=== PATIENT | male | born 1950 | race Caucasian/White ===

== ENCOUNTER 2019-01-18 23:23 | Inpatient (IN) | payer MEDICARE, OTHER ==
[~2019-01-18] VITALS: Ht 177.8 cm; Wt 93.5 kg
--- OUTSIDE RECORDS SUMMARY | 2019-01-18 23:32 | XMS REPORT ---
Author Author Migration, Doctor Organization [facility] Address Unknown Phone Unavailable Care Team Providers Care Pnp Name Role Phone Migration, Doctor Unavailable Unavailable PROBLEMS Type Condition ICD9-CM Code NUN63-OZ Code Onset Dates Condition Status SNOMED Code Problem Uncontrolled type 2 diabetes mellitus without complication, without long- term current use of insulin E11.65 Active 726528298 Problem Controlled type 2 diabetes mellitus without complication, without long- term current use of insulin E11.9 Active 479946466 Problem Type 2 diabetes mellitus with hyperglycemia E11.65 Active 854823245290142 Problem Hypertension, benign I10 Active 03159774 ALLERGIES No Information ENCOUNTERS Encounter Location Date Diagnosis [place] [id number] [place] [address] Dec, [place] [id number] [place] [address] Sep, Type 2 diabetes mellitus with hyperglycemia E11.65 [place] [id number] [place] [address] Sep, Type 2 diabetes mellitus with hyperglycemia E11.65 [place] [id number] [place] [address] Aug, Controlled type 2 diabetes mellitus without complication, without long-term current use of insulin E11.9 [place] [id number] [place] [address] Jan, Controlled type 2 diabetes mellitus without complication, without long-term current use of insulin E11.9 [place] [id number] [place] [address] Dec, Uncontrolled type 2 diabetes mellitus without complication, without long-term current use of insulin E11.65 [place] [id number] [place] [address] Nov, [facility] [address], [place] [address] Nov, Uncontrolled type 2 diabetes mellitus without complication, without long-term current use of insulin E11.65 and Hypertension, benign I10 [facility] [id number] [address] Sep, Type 2 diabetes mellitus with hyperglycemia E11.65 and Hypertension, benign I10 [facility] [id number] [place] [address] Aug, Type 2 diabetes mellitus with hyperglycemia E11.65 [place] [id number] [place] [address] Jan, [place] [id number] [place] [address] October, Blood pressure check Z01.30 [facility] WALK IN [facility] [id number] [place] [address] October, [facility] [id number] [place] [address] Jun, Type 2 diabetes mellitus with hyperglycemia E11.65 [facility] [id number] [place] [address] Jun, Shingles outbreak B02.9 ; Benign essential hypertension I10 and Diabetes E11.9 [place] [id number] [place] [address] Mar, [place] [id number] [place] [address] Jan, [place] [id number] [place] [address] Jan, [facility] [id number] [place] [address] Jan, [place] [id number] [place] [address] Dec, Diabetes type 2, uncontrolled 250.02 [facility] [address] [facility] [id number] [place] [address] Dec, [facility] [address] [facility] [id number] [place] [address] Nov, [facility] [address] [facility] [id number] [place] [address] 14 Sep, 2014 [facility] [address] [facility] [id number], [place] [address] Sep, [facility] [address] [facility] [id number] [place] [address] Aug, [facility] [id number], [place] [address] Aug, [facility] [address], [place] [address] Jul, [facility] [id number], [place] [address] Jul, [facility] [address], [place] [address] Jul, [facility] [address], [place] [address] Jul, [facility] [address], [place] [address] Jul, [facility] [address] [facility] [id number], [place] [address] Jul, [facility] [id number], [place] [address] Jun, [facility] [address] [facility] [id number], [place] [address] Jun, [facility] [id number], [place] [address] Jul, [facility] [address] [facility] [id number], [place] [address] Jun, [facility] [address], [place] [address] May, [facility] [address], [place] [address] May, [facility] [id number], [place] [address] May, [facility] [address] [facility] [id number], [place] [address] May, IMMUNIZATIONS No Known Immunizations SOCIAL HISTORY Never Assessed REASON FOR VISIT PLAN OF CARE VITAL SIGNS MEDICATIONS Unknown Medications RESULTS No Results PROCEDURES No Known procedures INSTRUCTIONS MEDICATIONS ADMINISTERED No Known Medications MEDICAL (GENERAL) HISTORY Type Description Date Medical History hypertension Medical History diabetes
--- OUTSIDE RECORDS SUMMARY | 2019-01-18 23:32 | XMS REPORT ---
Author Author Migration, Doctor Organization [facility] Address Unknown Phone Unavailable Care Team Providers Care Manager Behavior Name Role Phone Migration, Doctor Unavailable Unavailable PROBLEMS Type Condition ICD9-CM Code HYY14-NO Code Onset Dates Condition Status SNOMED Code Problem Uncontrolled type 2 diabetes mellitus without complication, without long- term current use of insulin E11.65 Active 430191436 Problem Controlled type 2 diabetes mellitus without complication, without long- term current use of insulin E11.9 Active 028978822 Problem Type 2 diabetes mellitus with hyperglycemia E11.65 Active [id number] Problem Hypertension, benign I10 Active 73443934 ALLERGIES No Information ENCOUNTERS Encounter Location Date Diagnosis [place] [id number] [place] [address] Dec, [place] [id number] [place] [address] Sep, Type 2 diabetes mellitus with hyperglycemia E11.65 [place] [id number] [place] [address] Sep, Type 2 diabetes mellitus with hyperglycemia E11.65 [place] [id number] [place] [address] Aug, Controlled type 2 diabetes mellitus without complication, without long-term current use of insulin E11.9 [place] [id number] [place] [address] Jan, Controlled type 2 diabetes mellitus without complication, without long-term current use of insulin E11.9 [place] [id number] [place] [address] Dec, Uncontrolled type 2 diabetes mellitus without complication, without long-term current use of insulin E11.65 [place] [id number] [place] [address] Nov, [facility] [address] [address] Nov, Uncontrolled type 2 diabetes mellitus without complication, without long-term current use of insulin E11.65 and Hypertension, benign I10 [facility] [id number] [address] Sep, Type 2 diabetes mellitus with hyperglycemia E11.65 and Hypertension, benign I10 [facility] [address] [id number] [place] [address] Aug, Type 2 diabetes mellitus with hyperglycemia E11.65 [place] [id number] [place] [address] Jan, [place] [id number] [place] [address] October, Blood pressure check Z01.30 [facility] WALK IN [facility] [id number] [place] [address] October, [facility] [id number] [place] [address] Jun, Type 2 diabetes mellitus with hyperglycemia E11.65 [facility] [id number] [place] [address] Jun, Shingles outbreak B02.9 ; Benign essential hypertension I10 and Diabetes E11.9 [place] [id number] [place] [address] Mar, [place] [id number] [place] [address] Jan, [place] [id number] [place] [address] Jan, [facility] [id number] [place] [address] Jan, [place] [id number] [place] [address] Dec, Diabetes type 2, uncontrolled 250.02 [facility] [address] [facility] [id number] [place] [address] Dec, [facility] [address] [facility] [id number] [place] [address] Nov, [facility] [address] [facility] [id number] [place] [address] 14 Sep, 2014 [facility] [address] [facility] [id number] [address] Sep, [facility] [address] [facility] [id number] [place] [address] Aug, [facility] [id number] [address] Aug, [facility] [address] [address] Jul, [facility] [id number] [address] Jul, [facility] [address] [address] Jul, [facility] [address] [address] Jul, [facility] [address] [address] Jul, [facility] [address] [facility] [id number] [place] [address] Jul, [facility] [id number] [address] Jun, [facility] [address] [facility] [id number] [place] [address] Jun, [facility] [id number] [address] Jul, [facility] [address] [facility] [id number] [place] [address] Jun, [facility] [address] [address] May, [facility] [address] [address] May, [facility] [id number] [address] May, [facility] [address] [facility] [id number] [place] [address] May, IMMUNIZATIONS No Known Immunizations SOCIAL HISTORY Never Assessed REASON FOR VISIT PLAN OF CARE VITAL SIGNS MEDICATIONS Unknown Medications RESULTS No Results PROCEDURES No Known procedures INSTRUCTIONS MEDICATIONS ADMINISTERED No Known Medications MEDICAL (GENERAL) HISTORY Type Description Date Medical History hypertension Medical History diabetes
--- OUTSIDE RECORDS SUMMARY | 2019-01-18 23:32 | XMS REPORT ---
Author Author Migration, Doctor Organization [facility] Address Unknown Phone Unavailable Care Team Providers Care Suction Plate Roller Hand Name Role Phone Migration, Doctor Unavailable Unavailable PROBLEMS Type Condition ICD9-CM Code XKO13-WM Code Onset Dates Condition Status SNOMED Code Problem Uncontrolled type 2 diabetes mellitus without complication, without long- term current use of insulin E11.65 Active 539210475 Problem Controlled type 2 diabetes mellitus without complication, without long- term current use of insulin E11.9 Active 349990711 Problem Type 2 diabetes mellitus with hyperglycemia E11.65 Active 357647968858401 Problem Hypertension, benign I10 Active 55420886 ALLERGIES No Information ENCOUNTERS Encounter Location Date Diagnosis [place] [id number] [place] [address] Sep, Type 2 diabetes mellitus with hyperglycemia E11.65 [place] [id number] [place] [address] Sep, Type 2 diabetes mellitus with hyperglycemia E11.65 [place] [id number] [place] [address] Aug, Controlled type 2 diabetes mellitus without complication, without long-term current use of insulin E11.9 [place] [address], [place] [address] Jan, Controlled type 2 diabetes mellitus without complication, without long-term current use of insulin E11.9 [place] [address], [place] [address] Dec, Uncontrolled type 2 diabetes mellitus without complication, without long-term current use of insulin E11.65 [facility] [address], [place] [address] Nov, [facility] [id number] [place] [address] Nov, Uncontrolled type 2 diabetes mellitus without complication, without long-term current use of insulin E11.65 and Hypertension, benign I10 [facility] [id number] [place] [address] Sep, Type 2 diabetes mellitus with hyperglycemia E11.65 and Hypertension, benign I10 [facility] [id number] [place] [address] Aug, Type 2 diabetes mellitus with hyperglycemia E11.65 [facility] [id number] [place] [address] Jan, [place] [id number] [place] [address] October, Blood pressure check Z01.30 [facility] [id number] [place] [address] October, [facility] [id number] [place] [address] Jun, Type 2 diabetes mellitus with hyperglycemia E11.65 [facility] WALK IN [facility] [id number] [place] [address] Jun, Shingles outbreak B02.9 ; Benign essential hypertension I10 and Diabetes E11.9 [place] [id number] [place] [address] Mar, [place] [id number] [place] [address] Jan, [place] [id number] [place] [address] Jan, [place] [id number] [place] [address] Jan, [facility] [id number] [place] [address] Dec, Diabetes type 2, uncontrolled 250.02 [facility] [id number] [place] [address] Dec, [facility] [place] [facility] [address] [facility] [id number] [place] [address] Nov, [facility] [place] [facility] [address] [facility] [id number] [place] [address] 14 Sep, 2014 [facility] [place] [facility] [address] [facility] [id number] [place] [address] Sep, [facility] [place] [facility] [address] [facility] [id number], [place] [address] Aug, [facility] [place] [facility] [address] [facility] [id number] [place] [address] Aug, [facility] [place] [facility] [address] [facility] [id number], [place] [address] Jul, 2014 [facility] [place] [facility] [address] [facility] [id number] [place] [address] Jul, [facility] [place] [facility] [address] [facility] [id number], [place] [address] Jul, 2014 [facility] [place] [facility] [address] [facility] [id number], [place] [address] Jul, [facility] [place] [facility] [address] [facility] [id number], [place] [address] Jul, [facility] [place] [facility] [address] [facility] [id number], [place] [address] Jul, 2014 [facility] [place] [facility] [address] [facility] [id number], [place] [address] Jun, [facility] [place] [facility] [address] [facility] [id number], [place] [address] Jun, [facility] [place] [facility] [address] [facility] [id number], [place] [address] Jul, 2012 [facility] [place] [facility] [address] [facility] [id number], [place] [address] Jun, [facility] [place] [facility] [address] [facility] [id number], [place] [address] May, [facility] [address] [facility] [id number], [place] [address] May, [facility] [address] [facility] [id number], [place] [address] May, [facility] [address] [facility] [id number], [place] [address] May, IMMUNIZATIONS No Known Immunizations SOCIAL HISTORY Never Assessed REASON FOR VISIT EMR-[facility] [place] PLAN OF CARE VITAL SIGNS MEDICATIONS Unknown Medications RESULTS No Results PROCEDURES No Known procedures INSTRUCTIONS MEDICATIONS ADMINISTERED No Known Medications MEDICAL (GENERAL) HISTORY Type Description Date Medical History hypertension Medical History diabetes
--- OUTSIDE RECORDS SUMMARY | 2019-01-18 23:32 | XMS REPORT ---
Author Author CASA Trotter Organization [facility] Address [address] [place] [address] Care Team Providers Care Breeder Service Technician Name Role Phone CASA Trotter Unavailable PROBLEMS Type Condition ICD9-CM Code DUR25-YB Code Onset Dates Condition Status SNOMED Code Problem Uncontrolled type 2 diabetes mellitus without complication, without long- term current use of insulin E11.65 Active 502171230 Problem Controlled type 2 diabetes mellitus without complication, without long- term current use of insulin E11.9 Active 249946357 Problem Type 2 diabetes mellitus with hyperglycemia E11.65 Active 170239337623001 Problem Hypertension, benign I10 Active 56164150 ALLERGIES No Information ENCOUNTERS Encounter Location Date Diagnosis [place] [address] [id number] [place] [address] Dec, [place] [address] [address] [id number] [place] [address] Sep, Type 2 diabetes mellitus with hyperglycemia E11.65 [place] [address] [id number] [place] [address] Sep, Type 2 diabetes mellitus with hyperglycemia E11.65 [place] [id number] [place] [address] Aug, Controlled type 2 diabetes mellitus without complication, without long-term current use of insulin E11.9 [place] [id number] [place] [address] Jan, Controlled type 2 diabetes mellitus without complication, without long-term current use of insulin E11.9 [place] [id number] [place] [address] Dec, Uncontrolled type 2 diabetes mellitus without complication, without long-term current use of insulin E11.65 [facility] [address], [place] [address] Nov, [facility] [id number] [place] [address] Nov, Uncontrolled type 2 diabetes mellitus without complication, without long-term current use of insulin E11.65 and Hypertension, benign I10 [facility] [id number] [place] [address] Sep, Type 2 diabetes mellitus with hyperglycemia E11.65 and Hypertension, benign I10 [facility] [id number] [place] [address] Aug, Type 2 diabetes mellitus with hyperglycemia E11.65 [place] [id number] [place] [address] Jan, [place] [id number] [place] [address] October, Blood pressure check Z01.30 [facility] [id number] [place] [address] October, [facility] [id number] [place] [address] Jun, Type 2 diabetes mellitus with hyperglycemia E11.65 [facility] [address], [place] [address] Jun, Shingles outbreak B02.9 ; Benign essential hypertension I10 and Diabetes E11.9 [facility] [address], [place] [address] Mar, [facility] [id number] [place] [address] Jan, [facility] [id number] [place] [address] Jan, [facility] [id number] [place] [address] Jan, [facility] [address] [facility] [id number], [place] [address] Dec, Diabetes type 2, uncontrolled 250.02 [facility] [address] [facility] [id number], [place] [address] Dec, [facility] [id number] [place] [address] Nov, [facility] [address] [facility] [id number], [place] [address] Sep, [facility] [address] [facility] [id number] [place] [address], [place] [address] Sep, [facility] [address], [place] [address] Aug, [facility] [id number] [place] [address] Aug, [facility] [address], [place] [address] Jul, [facility] [address], [place] [address] Jul, [facility] [address], [place] [address] Jul, [facility] [address], [place] [address] Jul, [facility] [address], [place] [address] Jul, [facility] [address], [place] [address] Jul, [facility] [address], [place] [address] Jun, [facility] [address], [place] [address] Jun, [facility] [address] [facility] [id number], [place] [address] Jul, [facility] [address] [place] [id number], [place] [address] Jun, [facility] [address], [place] [address] May, [facility] [address], [place] [address] May, [facility] [id number], [place] [address] May, [facility] [id number], [place] [address] May, IMMUNIZATIONS No Known Immunizations SOCIAL HISTORY Never Assessed REASON FOR VISIT PLAN OF CARE VITAL SIGNS Height 66 in 2014-07-28 Weight 193 lbs 2014-07-28 Temperature 98.6 degrees Fahrenheit 2014-07-28 Heart Rate 88 bpm 2014-07-28 Respiratory Rate 22 2014-07-28 Blood pressure systolic 190 mmHg 2014-07-28 Blood pressure diastolic 100 mmHg 2014-07-28 MEDICATIONS Unknown Medications RESULTS No Results PROCEDURES Procedure Date Ordered Result Body Site GLYCATED HEMOGLOBIN TEST Jul 28, 2014 INSTRUCTIONS MEDICATIONS ADMINISTERED No Known Medications MEDICAL (GENERAL) HISTORY Type Description Date Medical History hypertension Medical History diabetes
--- OUTSIDE RECORDS SUMMARY | 2019-01-18 23:33 | XMS REPORT ---
Author Author MARIA ELENA VINES Organization [employer] Address Unknown Phone Unavailable Care Team Providers Care Breast Splitter Name Role Phone MARIA ELENA VINES CP Unavailable Allergies No Known Allergies Problems No Known Problems Medications Medication Code System Code Instructions Start Date End Date Status Dosage Lisinopril-Hydrochlorothiazide [facility] [id number] 20-25 MG TAKE ONE TABLET BY MOUTH ONCE DAILY IN THE MORNING Results No Known Results Summary Purpose [employer] Submission
--- OUTSIDE RECORDS SUMMARY | 2019-01-18 23:33 | XMS REPORT ---
Author Author OUSMANE POTTS [facility] Address [address] [place] [address] Care Team Providers Care Engineering Model Maker Name Role Phone OUSMANE POTTS Unavailable PROBLEMS Type Condition ICD9-CM Code FHM07-BF Code Onset Dates Condition Status SNOMED Code Problem Uncontrolled type 2 diabetes mellitus without complication, without long- term current use of insulin E11.65 Active 186700155 Problem Hypertension, benign I10 Active 86694282 Problem Type 2 diabetes mellitus with hyperglycemia E11.65 Active [id number] ALLERGIES No Known Allergies ENCOUNTERS Encounter Location Date Diagnosis [place] [id number] [place] [address] Jan, [facility] [id number] [place] [address] Dec, Uncontrolled type 2 diabetes mellitus without complication, without long-term current use of insulin E11.65 [facility] [id number] [place] [address] Nov, [facility] [id number] [place] [address] Nov, Uncontrolled type 2 diabetes mellitus without complication, without long-term current use of insulin E11.65 and Hypertension, benign I10 [facility] [id number] [place] [address] Sep, Type 2 diabetes mellitus with hyperglycemia E11.65 and Hypertension, benign I10 [facility] [address] [id number] [place] [address] Aug, Type 2 diabetes mellitus with hyperglycemia E11.65 [facility] [id number] [place] [address] Jan, [facility] [id number] [place] [address] October, Blood pressure check Z01.30 [facility] [id number] [place] [address] October, [facility] [id number] [place] [address] Jun, Type 2 diabetes mellitus with hyperglycemia E11.65 [facility] [id number] [place] [address] Jun, Shingles outbreak B02.9 ; Benign essential hypertension I10 and Diabetes E11.9 [facility] [address] [address] Mar, [facility] [id number] [place] [address] Jan, [facility] [id number] [place] [address] Jan, [facility] [id number] [place] [address] Jan, [facility] [id number] [place] [address] Dec, Diabetes type 2, uncontrolled 250.02 [facility] [id number] [place] [address] Dec, [facility] [id number] [place] [address] Nov, [facility] [id number] [place] [address] Sep, [facility] [id number] [place] [address] Sep, [facility] [address] [place] [address] Aug, [facility] [id number], [place] [address] Aug, [facility] [address], [place] [address] Jul, 2014 [facility] [address], [place] [address] Jul, 2014 [facility] [address], [place] [address] Jul, 2014 [facility] [address], [place] [address] Jul, 2014 [facility] [address] [place] [address] Jul, [facility] [address], [place] [address] Jul, [facility] [address] [place] [address] Jun, [facility] [address], [place] [address] Jun, [facility] [address], [place] [address] Jul, [facility] [address], [place] [address] Jun, [facility] [address], [place] [address] May, [facility] [address], [place] [address] May, [facility] [address], [place] [address] May, [facility] [address], [place] [address] May, IMMUNIZATIONS No Known Immunizations SOCIAL HISTORY Never Assessed REASON FOR VISIT Diabetes II, PT saw you last month for DM-Moriah SOLO PLAN OF CARE VITAL SIGNS Height 66 in 2017-10-14 Weight 195.0 lbs 2017-10-14 Temperature 97.9 degrees Fahrenheit 2017-10-14 Heart Rate 68 bpm 2017-10-14 Respiratory Rate 18 2017-10-14 BMI 31.47 kg/m2 2017-10-14 Blood pressure systolic 164 mmHg 2017-10-14 Blood pressure diastolic 90 mmHg 2017-10-14 MEDICATIONS Medication Instructions Dosage Frequency Start Date End Date Duration Status GlipiZIDE 10 mg Orally 2 times a day 2 tablets 12h Sep, 30 day(s) Active Lisinopril-Hydrochlorothiazide 20-12.5 MG Orally Once a day 2 tablets 24h Sep, 30 day(s) Active Protonix 40 mg Orally Once a day 1 tablet 24h Active Aspir-81 Active Simvastatin 20 mg Orally Once a day 1 tablet in the evening 24h Active Atenolol 50 mg Orally Once a day 1 tablet 24h Active Actos 45 MG Orally Once a day 1 tablet 24h Active Metformin HCl 1000 MG Orally Twice a day 1 tablet with meals 12h 30 Active RESULTS No Results PROCEDURES No Known procedures INSTRUCTIONS MEDICATIONS ADMINISTERED No Known Medications MEDICAL (GENERAL) HISTORY Type Description Date Medical History hypertension Medical History diabetes
--- OUTSIDE RECORDS SUMMARY | 2019-01-18 23:33 | XMS REPORT ---
Author Author OUSMANE POTTS Organization [facility] Address [address] [place] [address] Care Team Providers Care Government Relations Director Name Role Phone OUSMANE POTTS Unavailable PROBLEMS Type Condition ICD9-CM Code [id number] Code Onset Dates Condition Status SNOMED Code Problem Controlled type 2 diabetes mellitus without complication, without long- term current use of insulin E11.9 Active 478703339 Problem Uncontrolled type 2 diabetes mellitus without complication, without long- term current use of insulin E11.65 Active 042601519 Problem Hypertension, benign I10 Active 22359752 Problem Type 2 diabetes mellitus with hyperglycemia E11.65 Active [id number] ALLERGIES No Known Allergies ENCOUNTERS Encounter Location Date Diagnosis [place] [address] [address] Jan, Controlled type 2 diabetes mellitus without complication, without long-term current use of insulin E11.9 [place] [address] [address] Dec, Uncontrolled type 2 diabetes mellitus without complication, without long-term current use of insulin E11.65 [place] [address] [place] [id number] [place] [address] Nov, [place] [address] [address] Nov, Uncontrolled type 2 diabetes mellitus without complication, without long-term current use of insulin E11.65 and Hypertension, benign I10 [place] [address] [address] Sep, Type 2 diabetes mellitus with hyperglycemia E11.65 and Hypertension, benign I10 [place] [id number] [place] [address] Aug, Type 2 diabetes mellitus with hyperglycemia E11.65 [facility] [address], [place] [address] Jan, [facility] [id number] [place] [address] October, Blood pressure check Z01.30 [facility] [id number] [place] [address] October, [facility] [place] [id number] [place] [address] Jun, Type 2 diabetes mellitus with hyperglycemia E11.65 [facility] [id number] [place] [address] Jun, Shingles outbreak B02.9 ; Benign essential hypertension I10 and Diabetes E11.9 [facility] [place] [id number] [place] [address] Mar, [facility] [place] [id number] [place] [address] Jan, [facility] [place] [id number] [place] [address] Jan, [facility] [place] [id number] [place] [address] Jan, [facility] [place] [address], [place] [address] Dec, Diabetes type 2, uncontrolled 250.02 [facility] [place] [id number], [place] [address] Dec, [facility] [place] [id number] [place] [address] Nov, [facility] [place] [id number] [place] [address] 14 Sep, 2014 [facility] [place] [address], [place] [address] Sep, [facility] [place] [facility] [address] [id number] [place] [address] Aug, [facility] [place] [facility] [address] [id number] [place] [address] Aug, 2014 [facility] [place] [facility] [address] [id number] [place] [address] Jul, 2014 [facility] [place] [facility] [address] [id number] [place] [address] Jul, 2014 [facility] [place] [facility] [address] [id number] [place] [address] Jul, 2014 [facility] [place] [facility] [address] [id number] [place] [address] Jul, 2014 [facility] [place] [facility] [address] [facility] [id number] [place] [address] Jul, 2014 [facility] [place] [facility] [address] [id number] [place] [address] Jul, 2014 [facility] [place] [facility] [address] [facility] [id number] [place] [address] Jun, [facility] [place] [facility] [address] [facility] [id number] [place] [address] Jun, [facility] [place] [facility] [address] [facility] [id number] [place] [address] Jul, [facility] [place] [facility] [address] [id number], [place] [address] Jun, [facility] [place] [facility] [address] [id number] [place] [address] May, [facility] [place] [facility] [address] [id number] [place] [address] May, [facility] [place] [facility] [address] [facility] [id number], [place] [address] May, [facility] [place] [facility] [address] [id number], [place] [address] May, IMMUNIZATIONS No Known Immunizations SOCIAL HISTORY Never Assessed REASON FOR VISIT medication f/u - Dennis Nash PLAN OF CARE VITAL SIGNS Height 66 in 2017-11-27 Weight 195.1 lbs 2017-11-27 Temperature 98.2 degrees Fahrenheit 2017-11-27 Heart Rate 76 bpm 2017-11-27 Respiratory Rate 18 2017-11-27 BMI 31.49 kg/m2 2017-11-27 Blood pressure systolic 172 mmHg 2017-11-27 Blood pressure diastolic 80 mmHg 2017-11-27 MEDICATIONS Medication Instructions Dosage Frequency Start Date End Date Duration Status - Active Amlodipine Besylate 10 mg Orally Once a day 1 tablet 24h Nov, 30 day(s) Active Metformin HCl 1000 MG Orally Twice a day 1 tablet with meals 12h 30 Active Lisinopril-Hydrochlorothiazide 20-12.5 MG Orally Once a day 2 tablets 24h Sep, 30 day(s) Active Simvastatin 20 mg Orally Once a day 1 tablet in the evening 24h Active Atenolol 50 mg Orally Once a day 1 tablet 24h Active Protonix 40 mg Orally Once a day 1 tablet 24h Active GlipiZIDE 10 mg Orally 2 times a day 2 tablets 12h 18 Sep, 2017 30 day(s) Active Actos 45 MG Orally Once a day 1 tablet 24h Active RESULTS No Results PROCEDURES No Known procedures INSTRUCTIONS MEDICATIONS ADMINISTERED No Known Medications MEDICAL (GENERAL) HISTORY Type Description Date Medical History hypertension Medical History diabetes
--- OUTSIDE RECORDS SUMMARY | 2019-01-18 23:33 | XMS REPORT ---
Author Author Migration, Doctor Organization [facility] Address Unknown Phone Unavailable Care Team Providers Care Outreach Manager Name Role Phone Migration, Doctor Unavailable Unavailable PROBLEMS Type Condition ICD9-CM Code [id number] Code Onset Dates Condition Status SNOMED Code Problem Uncontrolled type 2 diabetes mellitus without complication, without long- term current use of insulin E11.65 Active 373145181 Problem Controlled type 2 diabetes mellitus without complication, without long- term current use of insulin E11.9 Active 573291071 Problem Type 2 diabetes mellitus with hyperglycemia E11.65 Active [id number] Problem Hypertension, benign I10 Active 87194053 ALLERGIES No Information ENCOUNTERS Encounter Location Date Diagnosis [place] [id number] [place] [address] Sep, [place] [id number] [place] [address] Aug, Controlled type 2 diabetes mellitus without complication, without long-term current use of insulin E11.9 [place] [id number] [place] [address] Jan, Controlled type 2 diabetes mellitus without complication, without long-term current use of insulin E11.9 [place] [id number] [place] [address] Dec, Uncontrolled type 2 diabetes mellitus without complication, without long-term current use of insulin E11.65 [place] [address] [address] Nov, [place] [id number] [place] [address] Nov, Uncontrolled type 2 diabetes mellitus without complication, without long-term current use of insulin E11.65 and Hypertension, benign I10 [place] [id number] [place] [address] Sep, Type 2 diabetes mellitus with hyperglycemia E11.65 and Hypertension, benign I10 [facility] [id number] [place] [address] Aug, Type 2 diabetes mellitus with hyperglycemia E11.65 [facility] [id number] [address] Jan, [facility] [id number] [place] [address] October, Blood pressure check Z01.30 [facility] [id number] [place] [address] October, [facility] [id number] [place] [address] Jun, Type 2 diabetes mellitus with hyperglycemia E11.65 [facility] [id number] [place] [address] Jun, Shingles outbreak B02.9 ; Benign essential hypertension I10 and Diabetes E11.9 [facility] [address] [address] Mar, [facility] [id number] [place] [address] Jan, [facility] [address] [address] Jan, [facility] [id number] [address] Jan, [facility] [address] [address] Dec, Diabetes type 2, uncontrolled 250.02 [facility] [id number] [place] [address] Dec, [facility] [address] [address] Nov, [facility] [address] [place] [id number] [address] 14 Sep, 2014 [facility] [place] [facility] [address] [id number] [place] [address] Sep, [facility] [place] [facility] [address] [id number] [place] [address] Aug, [facility] [place] [facility] [address] [id number] [place] [address] Aug, [facility] [place] [facility] [address] [id number] [place] [address] Jul, [facility] [place] [facility] [address] [id number] [place] [address] Jul, 2014 [facility] [place] [facility] [address] [facility] [id number] [place] [address] Jul, [facility] [place] [facility] [address] [facility] [id number] [place] [address] Jul, [facility] [place] [facility] [address] [facility] [id number] [place] [address] Jul, [facility] [place] [facility] [address] [facility] [id number] [place] [address] Jul, [facility] [place] [facility] [address] [facility] [id number] [place] [address] Jun, [facility] [place] [facility] [address] [facility] [id number] [place] [address] Jun, [facility] [place] [facility] [address] [facility] [id number] [place] [address] Jul, [facility] [place] [facility] [address] [id number] [place] [address] Jun, [facility] [place] [facility] [address] [facility] [id number] [place] [address] May, [facility] [place] [facility] [address] [facility] [id number] [place] [address] May, [facility] [address] [facility] [id number] [place] [address] May, [facility] [address] [facility] [id number] [place] [address] May, IMMUNIZATIONS No Known Immunizations SOCIAL HISTORY Never Assessed REASON FOR VISIT EMR-[facility] PLAN OF CARE VITAL SIGNS MEDICATIONS Medication Instructions Dosage Frequency Start Date End Date Duration Status GlipiZIDE 5 mg 1 tablet by Oral route 1 time per day for diabetes Jun, Active metformin 1000 mg SI tab(s) orally 2 times a day Jun, Active Lisinopril-Hydrochlorothiazide 20-25 mg take 1 tablet by Oral route 1 time per day Take in AM Jun, Active RESULTS No Results PROCEDURES No Known procedures INSTRUCTIONS MEDICATIONS ADMINISTERED No Known Medications MEDICAL (GENERAL) HISTORY Type Description Date Medical History hypertension Medical History diabetes
--- OUTSIDE RECORDS SUMMARY | 2019-01-18 23:33 | XMS REPORT ---
Author Author MARIA ELENA VINES Organization [employer] Address Unknown Phone Unavailable Care Team Providers Care Journeyman Operator Assistant Name Role Phone MARIA ELENA VINES CP Unavailable Allergies No Known Allergies Problems No Known Problems Medications No Known Medications Results No Known Results Summary Purpose [employer] Submission
--- OUTSIDE RECORDS SUMMARY | 2019-01-18 23:33 | XMS REPORT ---
Author Author LAWSON MORAES Organization [employer] Address Unknown Phone Unavailable Care Team Providers Care Motocross Racer Name Role Phone LAWSON MORAES CP Unavailable Allergies, Adverse Reactions, Alerts Substance Reaction Event Type N.K.D.A. Info Not Available Non Drug Allergy Problems Problem Type Condition Code Onset Dates Condition Status Assessment Benign essential hypertension I10 Active Assessment Diabetes E11.9 Active Assessment Shingles outbreak B02.9 Active Medications Medication Code System Code Instructions Start Date End Date Status Dosage Hydrocodone-Acetaminophen [facility] [address]-04 7.5-325 MG Orally every 6 hrs, prn pain Jul 20, 2015 Jul 25, 2015 1 tablet as needed Lisinopril-Hydrochlorothiazide [facility] 55909220918 20-25 MG TAKE ONE TABLET BY MOUTH ONCE DAILY IN THE MORNING GlipiZIDE ER [facility] 96225691685 5 MG TAKE ONE TABLET BY MOUTH ONCE DAILY Metformin HCl [facility] [address]-14 1000 MG Orally Twice a day Feb 08, 2015 1 tablet with meals Valtrex [facility] [address]-98 1 GM Orally 3 times a day Jul 20, 2015 Jul 27, 2015 1 tablet Procedures Procedure Coding System Code Date Office Visit, Est Pt., Level 3 CPT-4 81834 Jul 20, 2015 Vital Signs Date/Time: Jul 20, 2015 Temperature 98.0 F Weight 189.4 lbs Height 66 in BMI 30.57 Index Blood Pressure Diastolic 102 mmHg Blood Pressure Systolic 178 mmHg Cardiac Monitoring Heart Rate 72 bpm Results No Known Results Summary Purpose [employer] Submission
--- OUTSIDE RECORDS SUMMARY | 2019-01-18 23:33 | XMS REPORT ---
Author Author OUSMANE POTTS Organization [facility] Address [address] [place] [address] Care Team Providers Care Newspaper Carrier Name Role Phone OUSMANE POTTS Unavailable PROBLEMS Type Condition ICD9-CM Code [id number] Code Onset Dates Condition Status SNOMED Code Problem Controlled type 2 diabetes mellitus without complication, without long- term current use of insulin E11.9 Active 179814094 Problem Uncontrolled type 2 diabetes mellitus without complication, without long- term current use of insulin E11.65 Active 986279878 Problem Hypertension, benign I10 Active 76071131 Problem Type 2 diabetes mellitus with hyperglycemia E11.65 Active [id number] ALLERGIES No Known Allergies ENCOUNTERS Encounter Location Date Diagnosis [place] [address] [address] Jan, Controlled type 2 diabetes mellitus without complication, without long-term current use of insulin E11.9 [place] [address] [address] Dec, Uncontrolled type 2 diabetes mellitus without complication, without long-term current use of insulin E11.65 [place] [address] [place] [id number] [place] [address] Nov, [place] [address] [address] Nov, Uncontrolled type 2 diabetes mellitus without complication, without long-term current use of insulin E11.65 and Hypertension, benign I10 [place] [address] [address] Sep, Type 2 diabetes mellitus with hyperglycemia E11.65 and Hypertension, benign I10 [place] [id number] [place] [address] Aug, Type 2 diabetes mellitus with hyperglycemia E11.65 [facility] [address] [address] Jan, [facility] [id number] [place] [address] October, Blood pressure check Z01.30 [facility] [id number] [place] [address] October, [facility] [id number] [place] [address] Jun, Type 2 diabetes mellitus with hyperglycemia E11.65 [facility] [id number] [place] [address] Jun, Shingles outbreak B02.9 ; Benign essential hypertension I10 and Diabetes E11.9 [facility] [id number] [place] [address] Mar, [facility] [id number] [place] [address] Jan, [facility] [id number] [place] [address] Jan, [facility] [id number] [place] [address] Jan, [facility] [address] [address] Dec, Diabetes type 2, uncontrolled 250.02 [facility] [id number] [address] Dec, [facility] [id number] [place] [address] Nov, [facility] [id number] [place] [address] 14 Sep, 2014 [facility] [address] [address] Sep, [facility] [place] [facility] [address] [id number] [place] [address] Aug, [facility] [place] [facility] [address] [id number] [place] [address] Aug, 2014 [facility] [place] [facility] [address] [id number] [place] [address] Jul, 2014 [facility] [place] [facility] [address] [id number] [place] [address] Jul, 2014 [facility] [place] [facility] [address] [id number] [place] [address] Jul, 2014 [facility] [place] [facility] [address] [id number] [place] [address] Jul, 2014 [facility] [place] [facility] [address] [facility] [id number] [place] [address] Jul, 2014 [facility] [place] [facility] [address] [id number] [place] [address] Jul, 2014 [facility] [place] [facility] [address] [facility] [id number] [place] [address] Jun, [facility] [place] [facility] [address] [facility] [id number] [place] [address] Jun, [facility] [place] [facility] [address] [facility] [id number] [place] [address] Jul, [facility] [place] [facility] [address] [id number] [address] Jun, [facility] [place] [facility] [address] [id number] [place] [address] May, [facility] [place] [facility] [address] [id number] [place] [address] May, [facility] [place] [facility] [address] [facility] [id number] [address] May, [facility] [place] [facility] [address] [id number], [place] [address] May, IMMUNIZATIONS No Known Immunizations SOCIAL HISTORY Never Assessed REASON FOR VISIT Diabetes Pt in for f/u on DM, [place] [facility] PLAN OF CARE VITAL SIGNS Height 66 in 2018-02-11 Weight 196.3 lbs 2018-02-11 Temperature 98.1 degrees Fahrenheit 2018-02-11 Heart Rate 84 bpm 2018-02-11 Respiratory Rate 18 2018-02-11 BMI 31.68 kg/m2 2018-02-11 Blood pressure systolic 148 mmHg 2018-02-11 Blood pressure diastolic 76 mmHg 2018-02-11 MEDICATIONS Medication Instructions Dosage Frequency Start Date End Date Duration Status Amlodipine Besylate 10 mg Orally Once a day 1 tablet 24h Nov, Active Aspir-81 Active Metformin HCl 1000 MG Orally Twice a day 1 tablet with meals 12h 30 Active Protonix 40 mg Orally Once a day 1 tablet 24h Active Simvastatin 20 mg Orally Once a day 1 tablet in the evening 24h Active GlipiZIDE 10 mg Orally 2 times a day 2 tablets 12h Sep, Active Actos 45 MG Orally Once a day 1 tablet 24h Active Lisinopril-Hydrochlorothiazide 20-12.5 MG Orally Once a day 2 tablets 24h Sep, Active Atenolol 50 mg Orally Once a day 1 tablet 24h Active RESULTS No Results PROCEDURES Procedure Date Ordered Result Body Site [facility] VISIT ESTABLISHED PATIENT Feb 11, 2018 INSTRUCTIONS MEDICATIONS ADMINISTERED No Known Medications MEDICAL (GENERAL) HISTORY Type Description Date Medical History hypertension Medical History diabetes
--- OUTSIDE RECORDS SUMMARY | 2019-01-18 23:33 | XMS REPORT ---
Author Author OUSMANE POTTS Organization [facility] Address [address] [place] [address] Care Team Providers Care Disciplinary Hearing Officer Name Role Phone OUSMANE POTTS Unavailable PROBLEMS Type Condition ICD9-CM Code VMX23-RV Code Onset Dates Condition Status SNOMED Code Problem Controlled type 2 diabetes mellitus without complication, without long- term current use of insulin E11.9 Active 121276126 Problem Uncontrolled type 2 diabetes mellitus without complication, without long- term current use of insulin E11.65 Active 444563414 Problem Hypertension, benign I10 Active 47253202 Problem Type 2 diabetes mellitus with hyperglycemia E11.65 Active [id number] ALLERGIES No Information ENCOUNTERS Encounter Location Date Diagnosis [place] [address] [address] Jan, Controlled type 2 diabetes mellitus without complication, without long-term current use of insulin E11.9 [place] [address] [address] Dec, Uncontrolled type 2 diabetes mellitus without complication, without long-term current use of insulin E11.65 [place] [address] [place] [id number] [place] [address] Nov, [place] [address] [address] Nov, Uncontrolled type 2 diabetes mellitus without complication, without long-term current use of insulin E11.65 and Hypertension, benign I10 [place] [address] [address] Sep, Type 2 diabetes mellitus with hyperglycemia E11.65 and Hypertension, benign I10 [place] [id number] [place] [address] Aug, Type 2 diabetes mellitus with hyperglycemia E11.65 [facility] [id number] [address] Jan, [facility] [id number] [place] [address] October, Blood pressure check Z01.30 [facility] [id number] [place] [address] October, [facility] [id number] [place] [address] Jun, Type 2 diabetes mellitus with hyperglycemia E11.65 [facility] [id number] [place] [address] Jun, Shingles outbreak B02.9 ; Benign essential hypertension I10 and Diabetes E11.9 [facility] [address] [place] [id number] [place] [address] Mar, [facility] [id number] [place] [address] Jan, [facility] [id number] [place] [address] Jan, [facility] [address] [id number] [place] [address] Jan, [facility] [address] [place] [id number] [place] [address] Dec, Diabetes type 2, uncontrolled 250.02 [facility] [id number] [place] [address] Dec, [facility] [id number] [place] [address] Nov, [facility] [id number] [place] [address] 14 Sep, 2014 [facility] [id number] [address] Sep, [facility] [place] [facility] [address] [id number] [place] [address] Aug, [facility] [place] [facility] [address] [id number] [place] [address] Aug, 2014 [facility] [place] [facility] [address] [id number] [place] [address] Jul, 2014 [facility] [place] [facility] [address] [id number] [place] [address] Jul, 2014 [facility] [place] [facility] [address] [id number] [place] [address] Jul, 2014 [facility] [place] [facility] [address] [id number] [place] [address] Jul, 2014 [facility] [place] [facility] [address] [facility] [id number] [place] [address] Jul, 2014 [facility] [place] [facility] [address] [facility] [id number] [place] [address] Jul, 2014 [facility] [place] [facility] [address] [facility] [id number] [place] [address] Jun, [facility] [place] [facility] [address] [facility] [id number] [place] [address] Jun, [facility] [place] [facility] [address] [facility] [id number] [place] [address] Jul, [facility] [place] [facility] [address] [id number] [address] Jun, [facility] [place] [facility] [address] [id number] [place] [address] May, [facility] [place] [facility] [address] [id number] [place] [address] May, [facility] [place] [facility] [address] [facility] [id number] [address] May, [facility] [place] [facility] [address] [id number], [place] [address] May, IMMUNIZATIONS No Known Immunizations SOCIAL HISTORY Never Assessed REASON FOR VISIT PLAN OF CARE VITAL SIGNS MEDICATIONS No Known Medications RESULTS No Results PROCEDURES No Known procedures INSTRUCTIONS MEDICATIONS ADMINISTERED No Known Medications MEDICAL (GENERAL) HISTORY Type Description Date Medical History hypertension Medical History diabetes
--- OUTSIDE RECORDS SUMMARY | 2019-01-18 23:33 | XMS REPORT ---
Author Author OUSMANE POTTS Organization [facility] Address [address] [place] [address] Care Team Providers Care Set Up Mechanic Name Role Phone OUSMANE POTTS Unavailable PROBLEMS Type Condition ICD9-CM Code [id number] Code Onset Dates Condition Status SNOMED Code Problem Controlled type 2 diabetes mellitus without complication, without long- term current use of insulin E11.9 Active 716098035 Problem Uncontrolled type 2 diabetes mellitus without complication, without long- term current use of insulin E11.65 Active 335138283 Problem Hypertension, benign I10 Active 61543120 Problem Type 2 diabetes mellitus with hyperglycemia E11.65 Active [id number] ALLERGIES No Known Allergies ENCOUNTERS Encounter Location Date Diagnosis [place] [address] [address] Jan, Controlled type 2 diabetes mellitus without complication, without long-term current use of insulin E11.9 [place] [address] [address] Dec, Uncontrolled type 2 diabetes mellitus without complication, without long-term current use of insulin E11.65 [place] [address] [place] [id number] [place] [address] Nov, [place] [address] [address] Nov, Uncontrolled type 2 diabetes mellitus without complication, without long-term current use of insulin E11.65 and Hypertension, benign I10 [place] [address] [address] Sep, Type 2 diabetes mellitus with hyperglycemia E11.65 and Hypertension, benign I10 [place] [address] [place] [id number] [place] [address] Aug, Type 2 diabetes mellitus with hyperglycemia E11.65 [facility] [address] [address] Jan, [facility] [address] [place] [id number] [place] [address] October, Blood pressure check Z01.30 [facility] [address] [place] [id number] [place] [address] October, [facility] [address] [place] [id number] [place] [address] Jun, Type 2 diabetes mellitus with hyperglycemia E11.65 [facility] [address] [place] [id number] [place] [address] Jun, Shingles outbreak B02.9 ; Benign essential hypertension I10 and Diabetes E11.9 [facility] [address] [place] [id number] [place] [address] Mar, [facility] [address] [place] [id number] [place] [address] Jan, [facility] [address] [place] [id number] [place] [address] Jan, [facility] [address] [place] [id number] [place] [address] Jan, [facility] [address] [address] Dec, Diabetes type 2, uncontrolled 250.02 [facility] [address] [place] [id number] [address] Dec, [facility] [address] [place] [id number] [place] [address] Nov, [facility] [address] [place] [id number] [place] [address] 14 Sep, 2014 [facility] [address] [address] Sep, [facility] [place] [facility] [address] [id number] [place] [address] Aug, [facility] [place] [facility] [address] [id number] [place] [address] Aug, 2014 [facility] [place] [facility] [address] [id number] [place] [address] Jul, 2014 [facility] [place] [facility] [address] [id number] [place] [address] Jul, 2014 [facility] [place] [facility] [address] [id number] [place] [address] Jul, 2014 [facility] [place] [facility] [address] [id number] [place] [address] Jul, 2014 [facility] [place] [facility] [address] [facility] [id number] [place] [address] Jul, 2014 [facility] [place] [facility] [address] [id number] [place] [address] Jul, 2014 [facility] [place] [facility] [address] [facility] [id number] [place] [address] Jun, [facility] [place] [facility] [address] [facility] [id number] [place] [address] Jun, [facility] [place] [facility] [address] [facility] [id number] [place] [address] Jul, [facility] [place] [facility] [address] [id number] [address] Jun, [facility] [place] [facility] [address] [id number] [place] [address] May, [facility] [place] [facility] [address] [id number] [place] [address] May, [facility] [place] [facility] [address] [facility] [id number] [address] May, [facility] [place] [facility] [address] [id number] [address] May, IMMUNIZATIONS No Known Immunizations SOCIAL HISTORY Never Assessed REASON FOR VISIT Diabetes, PT states he is doing better with an improvment in -[place] [facility] PLAN OF CARE Activity Details Follow Up 4 Weeks Reason:dm2 VITAL SIGNS Height 66 in 2018-01-01 Weight 195.1 lbs 2018-01-01 Temperature 97.9 degrees Fahrenheit 2018-01-01 Heart Rate 68 bpm 2018-01-01 Respiratory Rate 18 2018-01-01 Oximetry on room air:98 % 2018-01-01 BMI 31.49 kg/m2 2018-01-01 Blood pressure systolic 140 mmHg 2018-01-01 Blood pressure diastolic 88 mmHg 2018-01-01 MEDICATIONS Medication Instructions Dosage Frequency Start Date End Date Duration Status Lisinopril-Hydrochlorothiazide 20-12.5 MG Orally Once a day 2 tablets 24h Sep, 30 day(s) Active GlipiZIDE 10 mg Orally 2 times a day 2 tablets 12h Sep, 30 day(s) Active Actos 45 MG Orally Once a day 1 tablet 24h Active Aspir-81 Active Atenolol 50 mg Orally Once a day 1 tablet 24h Active Amlodipine Besylate 10 mg Orally Once a day 1 tablet 24h Nov, 30 day(s) Active Protonix 40 mg Orally Once a day 1 tablet 24h Active Simvastatin 20 mg Orally Once a day 1 tablet in the evening 24h Active Metformin HCl 1000 MG Orally Twice a day 1 tablet with meals 12h 30 Active RESULTS Name Result Date Reference Range A1C (IN HOUSE) 2018-01-01 A1C IN HOUSE 10.6 4.3 - 5.6 % Previous A1c 14.0 Lot [id number] Exp date 08/2019 PROCEDURES Procedure Date Ordered Result Body Site GLYCATED HEMOGLOBIN TEST January 01, 2018 [facility] VISIT ESTABLISHED PATIENT January 01, 2018 INSTRUCTIONS MEDICATIONS ADMINISTERED No Known Medications MEDICAL (GENERAL) HISTORY Type Description Date Medical History hypertension Medical History diabetes
--- OUTSIDE RECORDS SUMMARY | 2019-01-18 23:34 | XMS REPORT | Continuity of Care Document ---
Author Organization Unknown Address Unknown Allergies There is no data. Medications There is no data. Problems There is no data. Procedures There is no data. Results Test Result Range LIPID PANEL - 10/19/18 08:22 CHOLESTEROL, TOTAL 143 mg/dL <200 HDL CHOLESTEROL 40 mg/dL >40 TRIGLYCERIDES 187 mg/dL <150 LDL-CHOLESTEROL 75 mg/dL (calc) NRG CHOL/HDLC RATIO 3.6 (calc) <5.0 NON HDL CHOLESTEROL 103 mg/dL (calc) <130 Encounters ACCT No. Visit Date/Time Discharge Status Pt. Type Provider Facility Loc./Unit Complaint [id number] 10/19/2018 08:20:00 10/19/2018 23:59:59 [facility] [id number] 10/19/2018 08:20:00 Document Registration
--- OUTSIDE RECORDS SUMMARY | 2019-01-18 23:34 | XMS REPORT ---
Author Author OUSMANE POTTS Organization [facility] Address [address] [place] [address] Care Team Providers Care Event Decorator Name Role Phone OUSMANE POTTS Unavailable PROBLEMS Type Condition ICD9-CM Code [id number] Code Onset Dates Condition Status SNOMED Code Problem Uncontrolled type 2 diabetes mellitus without complication, without long- term current use of insulin E11.65 Active 099092737 Problem Hypertension, benign I10 Active 66700157 Problem Type 2 diabetes mellitus with hyperglycemia E11.65 Active [id number] ALLERGIES No Known Allergies ENCOUNTERS Encounter Location Date Diagnosis [place] [address] [place] [id number] [place] [address] Jan, [facility] [address] [place] [id number] [place] [address] Dec, Uncontrolled type 2 diabetes mellitus without complication, without long-term current use of insulin E11.65 [facility] [address] [place] [id number] [place] [address] Nov, [place] [address] [place] [id number] [place] [address] Nov, Uncontrolled type 2 diabetes mellitus without complication, without long-term current use of insulin E11.65 and Hypertension, benign I10 [facility] [address] [place] [id number] [place] [address] Sep, Type 2 diabetes mellitus with hyperglycemia E11.65 and Hypertension, benign I10 [facility] [address] [place] [id number] [place] [address] Aug, Type 2 diabetes mellitus with hyperglycemia E11.65 [facility] [address] [place] [id number] [place] [address] Jan, [facility] [address] [place] [id number] [address] October, Blood pressure check Z01.30 [facility] [address] [place] [id number] [place] [address] October, [facility] [address] [place] [id number] [place] [address] Jun, Type 2 diabetes mellitus with hyperglycemia E11.65 [facility] [address] [place] [id number] [place] [address] Jun, Shingles outbreak B02.9 ; Benign essential hypertension I10 and Diabetes E11.9 [facility] [address] [place] [id number] [place] [address] Mar, [facility] [address] [place] [id number] [place] [address] Jan, [facility] [address] [place] [id number] [place] [address] Jan, [facility] [address] [place] [id number] [place] [address] Jan, [facility] [address] [place] [id number] [place] [address] Dec, Diabetes type 2, uncontrolled 250.02 [facility] [address] [place] [id number] [place] [address] Dec, [facility] [address] [place] [id number] [place] [address] Nov, [facility] [address] [place] [id number] [place] [address] Sep, [facility] [address] [place] [id number] [place] [address] Sep, [facility] [address] [address] Aug, [facility] [address] [place] [id number] [place] [address] Aug, [facility] [address] [facility] [id number] [address] Jul, 2014 [facility] [address] [place] [id number] [address] Jul, 2014 [facility] [address] [address] Jul, 2014 [facility] [address] [address] Jul, 2014 [facility] [address] [address] Jul, [facility] [address] [place] [id number] [address] Jul, [facility] [address] [address] Jun, [facility] [address] [address] Jun, [facility] [address] [address] Jul, [facility] [address] [address] Jun, [facility] [address] [address] May, [facility] [address] [address] May, [facility] [address] [address] May, [facility] [address] [address] May, IMMUNIZATIONS No Known Immunizations SOCIAL HISTORY Never Assessed REASON FOR VISIT Establish/Diabetes-[facility] PLAN OF CARE Activity Details Follow Up 4 Weeks Reason:dm2 VITAL SIGNS Height 66 in 2017-09-09 Weight 190.6 lbs 2017-09-09 Temperature 98.0 degrees Fahrenheit 2017-09-09 Heart Rate 72 bpm 2017-09-09 Respiratory Rate 18 2017-09-09 BMI 30.76 kg/m2 2017-09-09 Blood pressure systolic 168 mmHg 2017-09-09 Blood pressure diastolic 90 mmHg 2017-09-09 MEDICATIONS Medication Instructions Dosage Frequency Start Date End Date Duration Status Lisinopril-Hydrochlorothiazide 20-25 MG 1 tablet 24h Active Metformin HCl 1000 MG Orally Twice a day 1 tablet with meals 12h 30 Active GlipiZIDE ER 10 mg Orally Once a day 1 tablet 24h Active Actos 30 MG Orally Once a day 1 tablet 24h Active Simvastatin 20 mg Orally Once a day 1 tablet in the evening 24h Active Atenolol 50 mg Orally Once a day 1 tablet 24h Active Protonix 40 mg Orally Once a day 1 tablet 24h Active Aspir-81 Active RESULTS Name Result Date Reference Range A1C (IN HOUSE) A1C IN HOUSE 14.0 4.3 - 5.6 % Previous A1c 14.0 Lot [id number] Exp date 04/2019 MICROALBUMIN, URINE (IN HOUSE) MICROALBUMIN Abnormal Lot # [id number] Exp date 06/28/2018 Clarity Clear Color yellow ALB 80 CRE 300 A:C (IN HOUSE) 30-300mg/g Control Control Lot # Exp date PROCEDURES Procedure Date Ordered Result Body Site GLYCATED HEMOGLOBIN TEST September 09, 2017 MICROALBUMIN, SEMIQUANT September 09, 2017 INSTRUCTIONS MEDICATIONS ADMINISTERED No Known Medications MEDICAL (GENERAL) HISTORY Type Description Date Medical History hypertension Medical History diabetes
[2019-01-18] MEDS ORDERED: NS IV 1000 ML 1,000 ML IV SCH (23:56)
[2019-01-19] MEDS ORDERED: ACETAMINOPHEN 500 MG TAB (TYLENOL) PO PRN
[2019-01-19] MEDS ORDERED: cefTRIAXone FOR IV USE 1,000 MG in WATER (STERILE) FOR INJECTION 10 ML IV ONE ×2
[2019-01-19] MEDS ORDERED: ONDANSETRON 4 MG/2 ML (SDV) Z0FRAN IV PRN
[2019-01-19 00:12] LABS: BILIRUBIN,URINE NEGATIVE (NEGATIVE); CLARITY,URINE CLEAR; COLOR,URINE YELLOW; GLUCOSE, URINE (UA) NEGATIVE (NEGATIVE); KETONES,URINE NEGATIVE (NEGATIVE); LEUKOCYTE ESTERASE ,URINE 2+ (NEGATIVE); NITRITE,URINE NEGATIVE (NEGATIVE); PH,URINE 5 (5-9); PROTEIN,URINE 3+ (NEGATIVE); UROBILINOGEN,URINE NORMAL (NORMAL)
[2019-01-19 00:24] LABS: BACTERIA,URINE MODERATE /HPF; SQUAMOUS EPITHELIAL CELL,UR 0-2 /HPF; WBC,URINE 25-50 /HPF
[2019-01-19 00:25] LABS: BASOPHILS % (AUTO) 0 % (0-10); EOSINOPHILS % (AUTO) 0 % (0-10); HEMATOCRIT 36 % (40-54); HEMOGLOBIN 12.3 G/DL (13.3-17.7); LYMPHOCYTES % (AUTO) 6 % (12-44); MEAN CORPUSCULAR HEMOGLOBIN 29 PG (25-34); MEAN CORPUSCULAR HGB CONC 35 G/DL (32-36); MEAN CORPUSCULAR VOLUME 85 FL (80-99); MONOCYTES # (AUTO) 1.9 X 10^3 (0.0-1.0); MONOCYTES % (AUTO) 11 % (0-12); NEUTROPHILS # (AUTO) 14.6 X 10^3 (1.8-7.8); NEUTROPHILS % (AUTO) 83 % (42-75); PLATELET COUNT 181 10^3/uL (130-400); RED CELL DISTRIBUTION WIDTH 12.7 % (10.0-14.5); WHITE BLOOD COUNT 17.6 10^3/uL (4.3-11.0)
[2019-01-19 00:35] LABS: INR 1.2 (0.8-1.4); PROTHROMBIN TIME PATIENT 15.9 SEC (12.2-14.7)
[2019-01-19 00:41] LABS: ALBUMIN 4.2 GM/DL (3.2-4.5); BILIRUBIN,TOTAL 0.6 MG/DL (0.1-1.0); CALCIUM 9.9 MG/DL (8.5-10.1); CREATININE SERUM 1.59 MG/DL (0.60-1.30); POTASSIUM 4.2 MMOL/L (3.6-5.0); TOTAL PROTEIN 7.6 GM/DL (6.4-8.2)
[2019-01-19] MEDS ORDERED: NS IV 1000 ML 1,000 ML IV SCH (01:08)
[2019-01-19 01:10] LABS: LYMPHOCYTES % (MANUAL) 4 %; MONOCYTES % (MANUAL) 9 %; NEUTROPHILS % (MANUAL) 87 %
[2019-01-19] MEDS ORDERED: IBUPROFEN 800 MG (MOTRIN) TAB PO STA (01:59)
--- OUTSIDE RECORDS SUMMARY | 2019-01-19 02:00 | XMS REPORT | Continuity of Care Document ---
[...] Status Pt. Type Provider Facility Loc./Unit Complaint [id number] 10/19/2018 08:20:00 10/19/2018 23:59:59 [facility] [place] [id number] 10/19/2018 08:20:00 Document Registration
--- NOTE | 2019-01-19 02:25 | NUR ---
ENEDINA SAAVEDRA admitted to room 420-1, with an admitting diagnosis of sepsis, UTI, NIDDM, renal insufficiency, on 01/19/19 from ED via wheelchair, accompanied by staff and family.ENEDINA SAAVEDRA introduced to surroundings, call light, bed controls, phone, TV, temperature control, lights, meal times, smoking policy, visitor policy, side rail policy, bathrooms and showers. Patient Rights given to patient in the handbook. ENEDINA SAAVEDRA verbalizes understanding that [facility] is not responsible for the loss or damage to any personal effects or valuables that are kept in the patients possession during their hospitalization. ENEDINA SAAVEDRA verbalizes understanding of Interdisciplinary Patient Education. Patient and/or family were informed about the Rapid Response Team and its purpose.
[2019-01-19 02:36] VITALS: BP 134/64
[2019-01-19] MEDS: NS IV 1000 ML 1,000 ML IV SCH ×5 (02:54→19:25)
[2019-01-19 04:00] VITALS: BP 118/60
--- NOTE | 2019-01-19 04:43 | ED GU-Male ---
General Chief Complaint: Abdominal/GI Problems Stated Complaint: SEPSIS;UTI;NIDDM;RENAL INSUFFICIENCY Nursing Triage Note: AMBULATORY TO ED WITH DAUGHTER AND . DAUGHTER INTERPRETS FOR PT STATING HE WAS SEEN EARLIER IN DAY AT URGENT CARE AND DX WITH PYELONEPHRITIS AND FEVER AND RX FOR LEVAQUIN PO WHICH PT TOOK THIS EVENING. HE CONTINUES TO HAVE FEVER, ABD PAIN, FLANK PAIN, BURNING AND FREQUENCY WITH URINATION, AND CONFUSION. Source: historical interpreter (DAUGHTER IS CLOUD ENGAGEMENT PARTNER) Exam Limitations: language barrier (PT DOES NOT SPEAK [place]) History of Present Illness Date Seen by Provider: Jan 18, 2019 Time Seen by Provider: 23:50 Initial Comments PT ARRIVES VIA POV FROM HOME WITH FAMILY PT HAS HAD PAIN/ BURNING ON URINATION WITH URGENCY AND FREQUENCY FOR THE LAST 3 DAYS TODAY HE BEGAN RUNNING SUBJECTIVE FEVER WAS SEEN EARLIER AT URGENT CARE AND WAS DX WITH PYELONEPHRITIS AND GIVEN RX FOR LEVAQUIN--ONLY TEST WAS UA PT TOOK 1 DOSE OF LEVAQUIN THIS EVENING PT BEGAN HAVING NAUSEA AND VOMITED X 1 THIS EVENING NO DIARRHEA NO ABDOMINAL PAIN, BUT HAS BILATERAL FLANK PAIN DAUGHTER REPORTS THAT HE IS "NOT ACTING QUITE RIGHT" AND IS CONFUSED--LIKE HE ISN'T UNDERSTANDING EVERYTHING THAT IS GOING ON NO HISTORY OF SIMILAR PT HAS NOT TAKEN ANYTHING FOR SYMPTOMS --NO TYLENOL, ETC PT IS DIABETIC BUT HAS NOT CHECKED BLOOD SUGAR PCP: [facility] Allergies and Home Medications Allergies Coded Allergies: No Known Drug Allergies (Unverified , 01/18/19) Patient Home Medication List Home Medication List Reviewed: Yes Review of Systems Review of Systems Constitutional: see HPI, fever, malaise, weakness EENTM: no symptoms reported Respiratory: no symptoms reported Cardiovascular: no symptoms reported Gastrointestinal: see HPI; No constipation, No diarrhea; loss of appetite, nausea, vomiting Genitourinary: see HPI, burning, dysuria, frequency, flank pain, pain, urgency Musculoskeletal: see HPI, back pain Skin: no symptoms reported Psychiatric/Neurological: See HPI, Other (CONFUSION) Endocrine: No Symptoms Reported Hematologic/Lymphatic: No Symptoms Reported Past Vyqvwep-Hxdgek-Ialowl Hx Patient Social History Alcohol Use: Occasionally Uses Recreational Drug Use: No Smoking Status: Never a Smoker Recent Foreign Travel: No Contact w/Someone Who Travel: No Recent Infectious Disease Expo: No Recent Hopitalizations: No Physical Abuse: No Sexual Abuse: No Mistreated: No Fear: No Seasonal Allergies Seasonal Allergies: No Past Medical History Surgeries: Yes (COLONOSCOPY 2007) Respiratory: No Cardiac: Yes High Cholesterol, Hypertension Neurological: No Genitourinary: No Gastrointestinal: Yes Hemorrhoids Musculoskeletal: No Endocrine: Yes Diabetes, Non-Insulin dep HEENT: No Cancer: No Psychosocial: No Integumentary: No Blood Disorders: No Family Medical History Patient reports no known family medical history. Physical Exam Vital Signs Vital Signs - First Documented 01/18/19 23:50 Temp 103.6 Pulse 109 Resp 18 B/P (MAP) 147/68 (94) Capillary Refill : Less Than 3 Seconds Height, Weight, BMI Height: 5'10.00" Weight: 196lbs. 0.0oz. [id number]; 28.1 BMI Method:Actual General Appearance: WD/WN, no apparent distress HEENT: PERRL/EOMI Neck: normal inspection Cardiovascular: regular rate, rhythm, no murmur Respiratory: normal breath sounds, no respiratory distress, no accessory muscle use Gastrointestinal: normal bowel sounds, non tender, soft Back: CVA tenderness (R), CVA tenderness (L) Extremities: normal inspection, no pedal edema, normal capillary refill Neurologic/Psychiatric: lump receiver II-XII nml as tested, no motor/sensory deficits, alert, normal mood/affect, oriented x 3 (PER DAUGHTER, BUT APPEARS TO BE SOMEWHAT CONFUSED, PER DAUGHTER) Focused Exam Lactate Level 01/19/19 00:10: Lactic Acid Level 1.76 Lactic Acid Level Laboratory Tests Test 01/19/19 00:10 Lactic Acid Level 1.76 MMOL/L (0.50-2.00) Progress/Results/Core Measures Suspected Sepsis Recent Fever Within 48 Hours: Yes Infection Criteria Present: Documented Infection New/Unexplained Altered Menta: Yes Sepsis Screen: No Definite Risk SIRS Temperature:99.0 Pulse: 85 Respiratory Rate: 20 Laboratory Tests 01/19/19 00:10: White Blood Count 17.6H Blood Pressure 134 /64 Mean: 80 01/19/19 00:10: Lactic Acid Level 1.76 Laboratory Tests 01/19/19 00:10: Creatinine 1.59H, INR Comment 1.2, Platelet Count 181, Total Bilirubin 0.6 Results/Orders Lab Results Laboratory Tests Test 01/18/19 23:59 01/19/19 00:10 Range/Units Urine Color YELLOW Urine Clarity CLEAR Urine pH 5 5-9 Urine Specific [place] 1.020 1.016-1.022 Urine Protein 3+ H NEGATIVE Urine Glucose (UA) NEGATIVE NEGATIVE Urine Ketones NEGATIVE NEGATIVE Urine Nitrite NEGATIVE NEGATIVE Urine Bilirubin NEGATIVE NEGATIVE Urine Urobilinogen NORMAL NORMAL MG/DL Urine Leukocyte Esterase 2+ H NEGATIVE Urine RBC (Auto) 4+ H NEGATIVE Urine RBC 2-5 H /HPF Urine WBC 25-50 H /HPF Urine Squamous Epithelial Cells 0-2 /HPF Urine Crystals NONE /LPF Urine Bacteria MODERATE H /HPF Urine Casts NONE /LPF Urine Mucus NEGATIVE /LPF Urine Culture Indicated CULTURE PENDING White Blood Count 17.6 H 4.3-11.0 10^3/uL Red Blood Count 4.19 L 4.35-5.85 10^6/uL Hemoglobin 12.3 L 13.3-17.7 G/DL Hematocrit 36 L 40-54 % Mean Corpuscular Volume 85 80-99 FL Mean Corpuscular Hemoglobin 29 25-34 PG Mean Corpuscular Hemoglobin Concent 35 32-36 G/DL Red Cell Distribution Width 12.7 10.0-14.5 % Platelet Count 181 130-400 10^3/uL Mean Platelet Volume 11.0 H 7.4-10.4 FL Neutrophils (%) (Auto) 83 H 42-75 % Lymphocytes (%) (Auto) 6 L 12-44 % Monocytes (%) (Auto) 11 0-12 % Eosinophils (%) (Auto) 0 0-10 % Basophils (%) (Auto) 0 0-10 % Neutrophils # (Auto) 14.6 H 1.8-7.8 X 10^3 Lymphocytes # (Auto) 1.0 1.0-4.0 X 10^3 Monocytes # (Auto) 1.9 H 0.0-1.0 X 10^3 Eosinophils # (Auto) 0.0 0.0-0.3 10^3/uL Basophils # (Auto) 0.0 0.0-0.1 10^3/uL Neutrophils % (Manual) 87 % Lymphocytes % (Manual) 4 % Monocytes % (Manual) 9 % Prothrombin Time 15.9 H 12.2-14.7 SEC INR Comment 1.2 0.8-1.4 Activated Partial Thromboplast Time 32 24-35 SEC Sodium Level 135 135-145 MMOL/L Potassium Level 4.2 3.6-5.0 MMOL/L Chloride Level 101 98-107 MMOL/L Carbon Dioxide Level 20 L 21-32 MMOL/L Anion Gap 14 5-14 MMOL/L Blood Urea Nitrogen 26 H 7-18 MG/DL Creatinine 1.59 H 0.60-1.30 MG/DL Estimat Glomerular Filtration Rate 44 BUN/Creatinine Ratio 16 Glucose Level 252 H 70-105 MG/DL Lactic Acid Level 1.76 0.50-2.00 MMOL/L Calcium Level 9.9 8.5-10.1 MG/DL Corrected Calcium 9.7 8.5-10.1 MG/DL Total Bilirubin 0.6 0.1-1.0 MG/DL Aspartate Amino Transf (AST/SGOT) 13 5-34 U/L Alanine Aminotransferase (ALT/SGPT) 11 0-55 U/L Alkaline Phosphatase 59 40-136 U/L Total Protein 7.6 6.4-8.2 GM/DL Albumin 4.2 3.2-4.5 GM/DL My Orders Orders - SHANTI DELCID DO Cbc With Automated Diff (01/18/19 23:56) Comprehensive Metabolic Panel (01/18/19 23:56) Blood Culture (01/18/19 23:56) Urinalysis (01/18/19:56) Urine Culture (01/18/19:56) Protime With Inr (01/18/19:56) Partial Thromboplastin Time (01/18/19 23:56) Acetaminophen Tablet (Tylenol Tablet) (01/19/19 00:00) Ed Iv/Invasive Line Start (01/18/19 23:56) Ed Iv/Invasive Line Start (01/18/19 23:56) Ekg Tracing (01/18/19 23:56) Vital Signs Adult Sepsis Patie Q15M (01/18/19 23:56) Ondansetron Injection (Zofran Injectio (01/19/19 00:00) O2 (01/18/19 23:56) Remove Rings In Anticipation O (01/18/19 23:56) Lactic Acid Analyzer (01/18/19 23:56) Ceftriaxone For Iv Use (Rocephin For I (01/19/19 00:00) Ed Iv/Invasive Line Start (01/18/19 23:56) Ns Iv 1000 Ml (Sodium Chloride 0.9%) (01/18/19 23:56) Accucheck Stat ONCE (01/18/19 23:56) Ct Abd/Pelvis Wo(Kidney Stone) (01/19/19 00:01) Chest 1 View, Ap/Pa Only (01/19/19 00:01) Manual Differential (01/19/19 00:10) Ed Iv/Invasive Line Start (01/19/19 01:08) Ns Iv 1000 Ml (Sodium Chloride 0.9%) (01/19/19 01:08) Medications Given in ED Current Medications Medications Dose Ordered Sig/Adrián Route Start Time Stop Time Status Last Admin Dose Admin Acetaminophen 1,000 mg ONCE PRN PO 01/19/19 00:00 01/19/19 01:07 DC 01/19/19 01:07 1,000 MG Ceftriaxone Sodium 1000 mg/ Sterile Water 10 ml @ 200 mls/hr ONCE ONCE IV 01/19/19 00:00 01/19/19 00:02 DC 01/19/19 00:30 200 MLS/HR Ondansetron HCl 4 mg PRN PRN IV 01/19/19 00:00 01/19/19 00:22 DC 01/19/19 00:22 4 MG Vital Signs/I&O 01/18/19 01/19/19 01/19/19 23:50 00:10 01:07 Temp 103.6 103.6 103.6 Pulse 109 99 Resp 18 18 B/P (MAP) 147/68 (94) 133/66 Capillary Refill : Less Than 3 Seconds Blood Pressure Mean: 80 Point of Care Testing Finger Stick Blood Glucose: 224 Blood Glucose Action Taken: DR AND RN NOTIFIED Progress Note : Progress Note TEMP DOWN TO 102 WITH TYLENOL AND DAUGHTER STATES THAT PT IS NO LONGER ACTING CONFUSED AND IS BACK TO NORMAL GIVEN MOTRIN TO FURTHER DECREASE FEVER NO VOMITING DURING ER STAY PT STATES HE FEELS BETTER ECG Initial ECG Impression Date: Jan 19, 2019 Initial ECG Impression Time: 01:25 Initial ECG Rate: 94 Initial ECG Rhythm: Normal Sinus Initial ECG Impression: 1st Degree AV Block Initial ECG Comparisson: No Previous ECG Available Diagnostic Imaging Comments CXR--NO ACUTE PROCESS, PENDING RADIOLOGIST REVIEW CT ABDOMEN/PELVIS--BILATERAL PERINEPHRIC STRANDING, OTHERWISE NO ACUTE PROCESS, PER [facility] VIA FAX AT 0114 Reviewed: Reviewed by Me Departure Communication (Admissions) 0120--ATTEMPTING TO CONTACT DR. BRIONES, [employer]TER [employer] FOR [facility] [place]--SPOKE WITH DR. BRIONES, ACCEPTS PT FOR ADMIT. Impression Primary Impression: Sepsis Additional Impressions: UTI (urinary tract infection) Renal insufficiency NIDDM HTN (hypertension) Disposition: ADMITTED INPATIENT Condition: Improved Admissions Decision to Admit Reason: Admit from ER (General) Decision to Admit/Date: Jan 19, 2019 Time/Decision to Admit Time: 01:20 Departure-Patient Inst. Referrals: [facility] (PCP) Primary Care Physician SHANTI DELCID DO Jan 19, 2019 04:43
[2019-01-19] MEDS ORDERED: inSUlin ASPART (NovoLOG) 1 UNIT/0.01 ML (CHARGE PER UNIT) SC SCH (06:00)
[2019-01-19 07:08] LABS: BASOPHILS % (AUTO) 0 % (0-10); EOSINOPHILS % (AUTO) 0 % (0-10); HEMATOCRIT 30 % (40-54); HEMOGLOBIN 10.2 G/DL (13.3-17.7); LYMPHOCYTES # (AUTO) 1.1 X 10^3 (1.0-4.0); LYMPHOCYTES % (AUTO) 10 % (12-44); MEAN CORPUSCULAR HEMOGLOBIN 30 PG (25-34); MEAN CORPUSCULAR HGB CONC 34 G/DL (32-36); MEAN CORPUSCULAR VOLUME 86 FL (80-99); MEAN PLATELET VOLUME 10.4 FL (7.4-10.4); MONOCYTES # (AUTO) 0.8 X 10^3 (0.0-1.0); MONOCYTES % (AUTO) 8 % (0-12); NEUTROPHILS # (AUTO) 8.9 X 10^3 (1.8-7.8); NEUTROPHILS % (AUTO) 82 % (42-75); PLATELET COUNT 136 10^3/uL (130-400); RED CELL DISTRIBUTION WIDTH 12.6 % (10.0-14.5); WHITE BLOOD COUNT 10.9 10^3/uL (4.3-11.0)
[2019-01-19 07:23] LABS: ALANINE AMINOTRANSFERASE 7 U/L (0-55); ALBUMIN 3.3 GM/DL (3.2-4.5); ALKALINE PHOSPHATASE 45 U/L (40-136); BILIRUBIN,TOTAL 0.4 MG/DL (0.1-1.0); BUN/CREATININE RATIO 20; CALCIUM 8.5 MG/DL (8.5-10.1); CARBON DIOXIDE 20 MMOL/L (21-32); CHLORIDE 110 MMOL/L (98-107); CREATININE SERUM 1.14 MG/DL (0.60-1.30); GFR ESTIMATED > 60; GLUCOSE 125 MG/DL (70-105); POTASSIUM 3.8 MMOL/L (3.6-5.0); SODIUM 140 MMOL/L (135-145); TOTAL PROTEIN 5.9 GM/DL (6.4-8.2)
--- NOTE | 2019-01-19 07:24 | Diagnostic Imaging Report ---
PROCEDURE: CT urinary tract, rule out kidney stone. TECHNIQUE: Multiple contiguous axial images were obtained through the abdomen and pelvis without the use of intravenous contrast. Auto Exposure Controls were utilized during the CT exam to meet ALARA standards for radiation dose reduction. INDICATION: Fever, pyelonephritis, flank pain, burning with urination. FINDINGS: No radiodense urinary tract stones. There are multiple bilateral cystic renal nodules. There is mild perinephric edema, left greater than right. No hydronephrosis. There is some thickening of the shannon of the urinary bladder. Cystitis and pyelonephritis could not be excluded. Correlate with urinalysis. No evidence for obstruction or stone. The liver, spleen, adrenals, pancreas unremarkable. The aorta is nonaneurysmal. There is no bowel obstruction. No free air or fluid collection. IMPRESSION: Multiple low-density renal nodules, presumed cystic with mild perinephric stranding and thickening of the urinary bladder shannon. Urinary tract infection and pyelonephritis suspected. No stone or hydronephrosis, however. Dictated by: Dictated on workstation # [id number]
--- NOTE | 2019-01-19 07:25 | Diagnostic Imaging Report ---
Indication: Shortness of breath. Findings: Lungs are clear. Heart and vessels normal. No effusion or pneumothorax. Impression: Negative. Dictated by: Dictated on workstation # [id number]
[2019-01-19 08:00] VITALS: BP 115/65
[2019-01-19] MEDS ORDERED: PANT40TA3 PO (09:08)
[2019-01-19] MEDS ORDERED: SIMV20TA3 PO (09:08)
[2019-01-19] MEDS ORDERED: PIOG45TA65 PO (09:08)
[2019-01-19] MEDS ORDERED: GLIP10TA13 PO (09:08)
[2019-01-19] MEDS ORDERED: ATEN50TA PO (09:08)
[2019-01-19] MEDS ORDERED: LISI1TAB8 PO (09:08)
[2019-01-19] MEDS ORDERED: LEVO500T80 PO (09:08)
[2019-01-19] MEDS ORDERED: AMLO10TA7 PO (09:08)
[2019-01-19] MEDS ORDERED: METF-399 PO (09:08)
--- NOTE | 2019-01-19 09:08 | NUR ---
WENT OVER THE EXT MED HX WITH THE PATIENT AND FAMILY MEMBER IN THE ROOM. SHE STATES HE DOES NOT TAKE ANYTHING OTC AND DOES NOT RECEIVE SAMPLES OR REPOSITORY MEDS, ALL PRESCRIPTIONS COME FROM [facility].
--- NOTE | 2019-01-19 11:03 | NUR ---
Pt is [employer] and speaks only Mongolian. He is [employer]. Order Filler provided prayer and Communion and will list for [employer] Architect visit.
[2019-01-19] MEDS: inSUlin ASPART (NovoLOG) 1 UNIT/0.01 ML (CHARGE PER UNIT) SC SCH ×3 (11:34→20:52)
[2019-01-19 12:00] VITALS: BP 155/86
[2019-01-19 16:00] VITALS: BP 161/96
--- NOTE | 2019-01-19 18:29 | NUR ---
PT'S FAMILY ASKED THIS RN WHY HOME MEDS HAD NOT BEEN RESTARTED -- CALLED DR BRIONES
[2019-01-19] MEDS: ACETAMINOPHEN 500 MG TAB (TYLENOL) PO PRN (19:26)
[2019-01-19 19:52] VITALS: BP 173/84
--- NOTE | 2019-01-19 20:08 | History & Physical ---
HPI History of Present Illness: 68 yo male started feeling ill about 2 days ago, having difficulty passing urine, feverish and sick to stomach. Yesterday he was confused and disoriented, went to walk in and got antibiotics for UTI but he continued to get worse and was vomiting his meds, so his family brought him to the ER. He is feeling better today. Daughter interprets and provides some history. Source: patient, family Exam Limitations: language barrier Date seen by provider: Jan 19, 2019 Time Seen by Provider: 11:28 Attending Physician Lizeth Mary MD PCP [place] Consult Date of Admission Jan 19, 2019 at 01:25 Home Medications Home Medications Reviewed patient Home Medication Reconciliation performed by pharmacy medication reconciliations liquified natural gas technician and/or nursing. Patients Allergies have been reviewed. Allergies Coded Allergies: No Known Drug Allergies (Unverified , 01/18/19) [id number]-Uutfkb Hx Patient Social History Alcohol Use: Occasionally Uses Recreational Drug Use: No Smoking Status: Never a Smoker Recent Foreign Travel: No Contact w/other who traveled: No Recent Hopitalizations: No Recent Infectious Disease Expo: No Past Medical History PMHx: Diabetes mellitus type II Hypertension Hyperlipidemia Family Medical History Significant Family History: Diabetes Family History: Patient reports no known family medical history. Review of Systems (CHC) Constitutional: fever EENTM: No nose congestion, No throat pain Respiratory: No cough, No short of breath Cardiovascular: No chest pain Gastrointestinal: No abdominal pain; constipation; No diarrhea; nausea, vomiting Genitourinary: see HPI Musculoskeletal: No joint pain Skin: No rash Psychiatric/Neurological: Denies Anxiety; Depressed Reviewed Test Results Reviewed Test Results Lab Laboratory Tests Test 01/18/19 23:59 01/19/19 00:10 01/19/19 02:00 01/19/19 05:38 Range/Units Urine Color YELLOW Urine Clarity CLEAR Urine pH 5 5-9 Urine Specific [place] 1.020 1.016-1.022 Urine Protein 3+ H NEGATIVE Urine Glucose (UA) NEGATIVE NEGATIVE Urine Ketones NEGATIVE NEGATIVE Urine Nitrite NEGATIVE NEGATIVE Urine Bilirubin NEGATIVE NEGATIVE Urine Urobilinogen NORMAL NORMAL MG/DL Urine Leukocyte Esterase 2+ H NEGATIVE Urine RBC (Auto) 4+ H NEGATIVE Urine RBC 2-5 H /HPF Urine WBC 25-50 H /HPF Urine Squamous Epithelial Cells 0-2 /HPF Urine Crystals NONE /LPF Urine Bacteria MODERATE H /HPF Urine Casts NONE /LPF Urine Mucus NEGATIVE /LPF Urine Culture Indicated CULTURE PENDING White Blood Count 17.6 H 4.3-11.0 10^3/uL Red Blood Count 4.19 L 4.35-5.85 10^6/uL Hemoglobin 12.3 L 13.3-17.7 G/DL Hematocrit 36 L 40-54 % Mean Corpuscular Volume 85 80-99 FL Mean Corpuscular Hemoglobin 29 25-34 PG Mean Corpuscular Hemoglobin Concent 35 32-36 G/DL Red Cell Distribution Width 12.7 10.0-14.5 % Platelet Count 181 130-400 10^3/uL Mean Platelet Volume 11.0 H 7.4-10.4 FL Neutrophils (%) (Auto) 83 H 42-75 % Lymphocytes (%) (Auto) 6 L 12-44 % Monocytes (%) (Auto) 11 0-12 % Eosinophils (%) (Auto) 0 0-10 % Basophils (%) (Auto) 0 0-10 % Neutrophils # (Auto) 14.6 H 1.8-7.8 X 10^3 Lymphocytes # (Auto) 1.0 1.0-4.0 X 10^3 Monocytes # (Auto) 1.9 H 0.0-1.0 X 10^3 Eosinophils # (Auto) 0.0 0.0-0.3 10^3/uL Basophils # (Auto) 0.0 0.0-0.1 10^3/uL Neutrophils % (Manual) 87 % Lymphocytes % (Manual) 4 % Monocytes % (Manual) 9 % Prothrombin Time 15.9 H 12.2-14.7 SEC INR Comment 1.2 0.8-1.4 Activated Partial Thromboplast Time 32 24-35 SEC Sodium Level 135 135-145 MMOL/L Potassium Level 4.2 3.6-5.0 MMOL/L Chloride Level 101 98-107 MMOL/L Carbon Dioxide Level 20 L 21-32 MMOL/L Anion Gap 14 5-14 MMOL/L Blood Urea Nitrogen 26 H 7-18 MG/DL Creatinine 1.59 H 0.60-1.30 MG/DL Estimat Glomerular Filtration Rate 44 BUN/Creatinine Ratio 16 Glucose Level 252 H 70-105 MG/DL Lactic Acid Level 1.76 0.50-2.00 MMOL/L Calcium Level 9.9 8.5-10.1 MG/DL Corrected Calcium 9.7 8.5-10.1 MG/DL Total Bilirubin 0.6 0.1-1.0 MG/DL Aspartate Amino Transf (AST/SGOT) 13 5-34 U/L Alanine Aminotransferase (ALT/SGPT) 11 0-55 U/L Alkaline Phosphatase 59 40-136 U/L Total Protein 7.6 6.4-8.2 GM/DL Albumin 4.2 3.2-4.5 GM/DL Glucometer 224 H 136 H 70-110 MG/DL Test 01/19/19 07:01 01/19/19 11:28 01/19/19 15:54 Range/Units White Blood Count 10.9 4.3-11.0 10^3/uL Red Blood Count 3.45 L 4.35-5.85 10^6/uL Hemoglobin 10.2 L 13.3-17.7 G/DL Hematocrit 30 L 40-54 % Mean Corpuscular Volume 86 80-99 FL Mean Corpuscular Hemoglobin 30 25-34 PG Mean Corpuscular Hemoglobin Concent 34 32-36 G/DL Red Cell Distribution Width 12.6 10.0-14.5 % Platelet Count 136 130-400 10^3/uL Mean Platelet Volume 10.4 7.4-10.4 FL Neutrophils (%) (Auto) 82 H 42-75 % Lymphocytes (%) (Auto) 10 L 12-44 % Monocytes (%) (Auto) 8 0-12 % Eosinophils (%) (Auto) 0 0-10 % Basophils (%) (Auto) 0 0-10 % Neutrophils # (Auto) 8.9 H 1.8-7.8 X 10^3 Lymphocytes # (Auto) 1.1 1.0-4.0 X 10^3 Monocytes # (Auto) 0.8 0.0-1.0 X 10^3 Eosinophils # (Auto) 0.0 0.0-0.3 10^3/uL Basophils # (Auto) 0.0 0.0-0.1 10^3/uL Sodium Level 140 135-145 MMOL/L Potassium Level 3.8 3.6-5.0 MMOL/L Chloride Level 110 H 98-107 MMOL/L Carbon Dioxide Level 20 L 21-32 MMOL/L Anion Gap 10 5-14 MMOL/L Blood Urea Nitrogen 23 H 7-18 MG/DL Creatinine 1.14 0.60-1.30 MG/DL Estimat Glomerular Filtration Rate > 60 BUN/Creatinine Ratio 20 Glucose Level 125 H 70-105 MG/DL Calcium Level 8.5 8.5-10.1 MG/DL Corrected Calcium 9.1 8.5-10.1 MG/DL Total Bilirubin 0.4 0.1-1.0 MG/DL Aspartate Amino Transf (AST/SGOT) 10 5-34 U/L Alanine Aminotransferase (ALT/SGPT) 7 0-55 U/L Alkaline Phosphatase 45 40-136 U/L Total Protein 5.9 L 6.4-8.2 GM/DL Albumin 3.3 3.2-4.5 GM/DL Glucometer 234 H 275 H 70-110 MG/DL Physical Exam-(CHC) Physical Exam Vital Signs VS - Last 72 Hours, by Label 01/18/19 01/19/19 01/19/19 01/19/19 23:50 00:10 01:07 02:04 Temp 103.6 103.6 103.6 102.0 Pulse 109 99 Resp 18 18 B/P (MAP) 147/68 (94) 133/66 01/19/19 01/19/19 01/19/19 01/19/19 02:14 02:30 02:34 02:36 Temp 102.0 100.0 99.0 Pulse 89 85 Resp 18 20 B/P (MAP) 116/62 (80) 134/64 Pulse Ox 98 94 94 O2 Delivery Room Air Room Air Room Air 01/19/19 01/19/19 01/19/19 01/19/19 04:00 04:37 07:00 08:00 Temp 97.8 Pulse 67 72 63 Resp 16 B/P (MAP) 118/60 (79) Pulse Ox 95 95 O2 Delivery Room Air Room Air 01/19/19 01/19/19 01/19/19 01/19/19 08:00 12:00 13:01 16:00 Temp 96.1 99.6 99.7 Pulse 66 84 81 86 Resp 20 20 20 B/P (MAP) 115/65 (82) 155/86 (109) 161/96 (117) Pulse Ox 97 97 98 O2 Delivery Room Air Room Air Room Air 01/19/19 19:52 Temp 102.1 Pulse 95 Resp 16 B/P (MAP) 173/84 (113) Pulse Ox 96 O2 Delivery Room Air Capillary Refill : Less Than 3 Seconds General Appearance: WD/WN, no apparent distress Respiratory: lungs clear, normal breath sounds Cardiovascular: regular rate, rhythm, no murmur Gastrointestinal: normal bowel sounds, non tender, soft Extremities: no pedal edema Neurologic/Psychiatric: alert, oriented x 3 Skin: normal color, warm/dry Assessment/Plan Assessment/Plan Admission Status: Inpatient Order (span 2 midnights) Reason for Inpatient Admission: Sepsis requiring IV antibiotics with acute renal insufficiency will need at least 2 nights. (1) UTI (urinary tract infection) Status: Acute Assessment & Plan: Ceftriaxone, culture pending. Qualifiers: (2) Sepsis Status: Acute Assessment & Plan: Secondary to UTI. No lactic acidosis or severe organ dysfunction. Ceftriaxone and IVF while awaiting cultures. Qualifiers: Qualified Codes: A41.9 - Sepsis, unspecified organism (3) Renal insufficiency Status: Resolved Assessment & Plan: Improved with IVF, monitor, hold ACEI and metformin. (4) Diabetes mellitus, type 2 Status: Chronic Assessment & Plan: Hold home metformin and pioglitazone, resume glyburide. Blood sugar ACHS and sliding scale insulin. Qualifiers: (5) Hyperlipidemia Status: Acute Assessment & Plan: Resume home statin (6) HTN (hypertension) Status: Acute Assessment & Plan: Resume home amlodipine and HCTZ, hold ACEI due to acute renal insufficiency. Qualifiers: Qualified Codes: I10 - Essential (primary) hypertension (7) DVT prophylaxis Status: Acute Assessment & Plan: Enoxaparin Clinical Quality Measures DVT/VTE Risk/Contraindication: Risk Factor Score Per Nursin RFS Level Per Nursing on Admit: 3=High LIZETH MARY MD Jan 19, 2019 20:08
[2019-01-19] MEDS: ENOXAPARIN 40 MG/0.4 ML (LOVENOX) SYR SC SCH (21:16)
[2019-01-19] MEDS: SIMvastatin 20 MG (ZOCOR) TAB PO SCH (21:16)
[2019-01-19] MEDS: cefTRIAXone 1,000 MG/SWFI 10 ML IV PUSH IV SCH ×2 (21:17)
[2019-01-20] VITALS: BP 163/81
[2019-01-20 04:00] VITALS: BP 174/77
[2019-01-20] MEDS: NS IV 1000 ML 1,000 ML IV SCH ×4 (05:00→19:16)
[2019-01-20] MEDS: glipiZIDE 5 MG (GLUCOTROL) TAB PO SCH ×2 (06:00→19:15)
[2019-01-20] MEDS: ACETAMINOPHEN 500 MG TAB (TYLENOL) PO PRN (06:00)
[2019-01-20 06:31] LABS: MEAN PLATELET VOLUME 11.6 FL (7.4-10.4); RED CELL DISTRIBUTION WIDTH 12.8 % (10.0-14.5); WHITE BLOOD COUNT 10.4 10^3/uL (4.3-11.0)
[2019-01-20] MEDS: inSUlin ASPART (NovoLOG) 1 UNIT/0.01 ML (CHARGE PER UNIT) SC SCH ×4 (06:35→21:13)
[2019-01-20 06:58] LABS: BUN/CREATININE RATIO 13; CALCIUM 8.7 MG/DL (8.5-10.1); CARBON DIOXIDE 16 MMOL/L (21-32); CHLORIDE 111 MMOL/L (98-107); CREATININE SERUM 0.86 MG/DL (0.60-1.30); GFR ESTIMATED > 60; GLUCOSE 152 MG/DL (70-105); POTASSIUM 3.9 MMOL/L (3.6-5.0); SODIUM 137 MMOL/L (135-145)
[2019-01-20 08:00] VITALS: BP 159/79
[2019-01-20] MEDS: amLODIPine 10 MG (NORVASC) TAB PO SCH (08:21)
[2019-01-20] MEDS: HYDROCHLOROTHIAZIDE 25 MG (HCTZ) TAB PO SCH (08:21)
[2019-01-20] MEDS: PANTOPRAZOLE 40 MG (PROTONIX) TAB PO SCH (08:21)
[2019-01-20] MEDS ORDERED: ATENOLOL 50 MG (TENORMIN) TAB PO SCH (09:00)
[2019-01-20 12:00] VITALS: BP 143/90
[2019-01-20] MEDS: lisINopril 20 MG (PRINIVIL) TABLET PO SCH ×2 (12:10→21:11)
--- NOTE | 2019-01-20 14:13 | NUR ---
provided prayer and Communion. Fr ART was here this morning to [facility] [place].
[2019-01-20 16:00] VITALS: BP 150/87
--- NOTE | 2019-01-20 18:16 | Progress Note ---
Subjective Subjective/Events-last exam Febrile to 102 in last 24 hours. Feeling much better, is urinating okay and feeling well. Focused Exam Lactate Level 01/19/19 00:10: Lactic Acid Level 1.76 Objective Exam Last Set of Vital Signs Vital Signs Date Time Temp Pulse Resp B/P (MAP) Pulse Ox O2 Delivery O2 Flow Rate FiO2 01/20/19 16:00 98.8 71 20 150/87 (108) 99 Room Air Capillary Refill : Less Than 3 Seconds I&O Intake and Output 01/20/19 00:00 Intake Total 6080 ml Output Total 550 ml Balance 5530 ml Intake Oral 1070 ml IV Total 5010 ml Output Urine Total 550 ml # Voids 11 # Bowel Movements 2 Daily Weight Change No No General: Alert, No Acute Distress Lungs: Clear to Auscultation, Normal Air Movement Heart: Regular Rate, No Murmurs Neuro: Normal Speech Psych/Mental Status: Mood NL Results/Procedures Lab Laboratory Tests 01/19/19 20:39: Glucometer 199H 01/20/19 05:25: White Blood Count 10.4, Red Blood Count 3.44L, Hemoglobin 10.0L, Hematocrit 30L, Mean Corpuscular Volume 87, Mean Corpuscular Hemoglobin 29, Mean Corpuscular Hemoglobin Concent 33, Red Cell Distribution Width 12.8, Platelet Count 117L, Mean Platelet Volume 11.6H, Sodium Level 137, Potassium Level 3.9, Chloride Le trisha 111H, Carbon Dioxide Level 16L, Anion Gap 10, Blood Urea Nitrogen 11, Creatinine 0.86, Estimat Glomerular Filtration Rate > 60, BUN/Creatinine Ratio 13, Glucose Level 152H, Calcium Level 8.7 01/20/19 06:28: Glucometer 152H Microbiology 01/19/19 Blood Culture - Preliminary, Resulted No growth Assessment/Plan Assessment/Plan (1) UTI (urinary tract infection) Status: Acute Assessment & Plan: Ceftriaxone, culture pending. Qualifiers: (2) Sepsis Status: Acute Assessment & Plan: Secondary to UTI. No lactic acidosis or severe organ dysfunction. Ceftriaxone and IVF while awaiting cultures. Qualifiers: Qualified Codes: A41.9 - Sepsis, unspecified organism (3) Renal insufficiency Status: Resolved Assessment & Plan: Improved with IVF, monitor, hold ACEI and metformin. (4) Diabetes mellitus, type 2 Status: Chronic Assessment & Plan: Hold home metformin and pioglitazone, resumed glipizide. Blood sugar ACHS and sliding scale insulin. Qualifiers: (5) Hyperlipidemia Status: Acute Assessment & Plan: Resume home statin (6) HTN (hypertension) Status: Acute Assessment & Plan: Resume home amlodipine and HCTZ, hold ACEI due to acute renal insufficiency. 01/20 resume lisinopril Qualifiers: Qualified Codes: I10 - Essential (primary) hypertension (7) DVT prophylaxis Status: Acute Assessment & Plan: Enoxaparin Clinical Quality Measures DVT/VTE Risk/Contraindication: Risk Factor Score Per Nursin RFS Level Per Nursing on Admit: 3=High LIZETH BRIONES MD Jan 20, 2019 18:16
[2019-01-20 20:00] VITALS: BP 173/99
[2019-01-20] MEDS ORDERED: CLOTRIMAZOLE 1% CREAM (LOTRIMIN) 30 GM TOP SCH (21:00)
[2019-01-20] MEDS: SIMvastatin 20 MG (ZOCOR) TAB PO SCH (21:11)
[2019-01-20] MEDS: cefTRIAXone 1,000 MG/SWFI 10 ML IV PUSH IV SCH ×2 (21:12)
[2019-01-20] MEDS: ENOXAPARIN 40 MG/0.4 ML (LOVENOX) SYR SC SCH (21:12)
[2019-01-21 00:10] VITALS: BP 169/84
[2019-01-21] MEDS: NS IV 1000 ML 1,000 ML IV SCH (02:45)
[2019-01-21 04:20] VITALS: BP 171/76
[2019-01-21] MEDS: glipiZIDE 5 MG (GLUCOTROL) TAB PO SCH (06:33)
[2019-01-21] MEDS: inSUlin ASPART (NovoLOG) 1 UNIT/0.01 ML (CHARGE PER UNIT) SC SCH ×2 (06:33→12:20)
[2019-01-21 07:10] LABS: MEAN PLATELET VOLUME 11.3 FL (7.4-10.4); RED CELL DISTRIBUTION WIDTH 12.6 % (10.0-14.5); WHITE BLOOD COUNT 7.5 10^3/uL (4.3-11.0)
[2019-01-21 07:30] LABS: BUN/CREATININE RATIO 12; CARBON DIOXIDE 19 MMOL/L (21-32); CHLORIDE 110 MMOL/L (98-107); CREATININE SERUM 0.95 MG/DL (0.60-1.30); GFR ESTIMATED > 60; GLUCOSE 167 MG/DL (70-105); POTASSIUM 3.5 MMOL/L (3.6-5.0); SODIUM 139 MMOL/L (135-145)
[2019-01-21 08:00] VITALS: BP 189/88
[2019-01-21] MEDS ORDERED: KCL 20 MEQ TAB (K-DUR) PO NR (08:15)
[2019-01-21] MEDS ORDERED: ATENOLOL 50 MG (TENORMIN) TAB PO SCH (09:00)
[2019-01-21] MEDS: HYDROCHLOROTHIAZIDE 25 MG (HCTZ) TAB PO SCH (09:12)
[2019-01-21] MEDS: lisINopril 20 MG (PRINIVIL) TABLET PO SCH (09:12)
[2019-01-21] MEDS: PANTOPRAZOLE 40 MG (PROTONIX) TAB PO SCH (09:12)
[2019-01-21] MEDS: amLODIPine 10 MG (NORVASC) TAB PO SCH (09:12)
[2019-01-21 12:00] VITALS: BP 181/86
[2019-01-21] MEDS ORDERED: ATEN100T PO (13:01)
[2019-01-21] MEDS ORDERED: CEFD300C3 PO (13:01)
--- NOTE | 2019-01-21 13:03 | Discharge Instructions ---
Discharge [facility] Discharge Medications New, Converted or Re-Newed RX: Transmitted to Pharmacy New Medications: Cefdinir (Cefdinir) 300 Mg Capsule 300 MG PO BID, #10 CAP 0 Refills Changed Medications: Atenolol (Atenolol) 100 Mg Tablet 100 MG PO DAILY, #30 TAB 0 Refills (Changed from: Atenolol 50 Mg Tablet 50 Mg PO DAILY) Continued Medications: Amlodipine Besylate (Amlodipine Besylate) 10 Mg Tablet 10 MG PO DAILY, TAB Glipizide (Glipizide) 10 Mg Tablet 20 MG PO BID, TAB TAKES 2 (10MG) TABLETS Lisinopril/Hydrochlorothiazide (Lisinopril-Hctz 20-12.5 mg Tab) 1 Each Tablet 1 TAB PO BID, TAB Metformin HCl (Metformin HCl) 1,000 Mg Tablet 1000 MG PO BID, TAB Pantoprazole Sodium (Pantoprazole Sodium) 40 Mg Tablet.dr 40 MG PO DAILY, TAB Pioglitazone HCl (Pioglitazone HCl) 45 Mg Tablet 45 MG PO DAILY, TAB Simvastatin (Simvastatin) 20 Mg Tablet 20 MG PO HS, TAB Discontinued Medications: Levofloxacin (Levofloxacin) 500 Mg Tablet 500 MG PO DAILY, TAB 7 DAY SUPPLY FILLED 01-18-19 Patient Instructions Goal/Follow Up Appt: January 26 at 11:40 with Dewey Bernabe APRN at [facility]. Return to The Hospital For: Fever, inability to keep down antibiotics Activity & Diet Discharge Diet: ADA Diet Orders-Post D/C & Referrals Pneu Vac Indicated: Yes Copy Copies To 1: CHERISE Miller BETHANY N MD Jan 21, 2019 13:03
--- NOTE | 2019-01-21 13:04 | Discharge Summary ---
Diagnosis/Chief Complaint Date of Admission Jan 19, 2019 at 01:25 Date of Discharge Jan 21, 2019 Admission Diagnosis Admission Diagnosis See problem list Discharge Diagnosis See problem list Problems/Diagnosis: (1) UTI (urinary tract infection) Assessment & Plan: Ceftriaxone, culture pending. Culture negative, discharged with cefdinir given improvement on ceftriaxone. Qualifiers: Status: Resolved (2) Sepsis Assessment & Plan: Secondary to UTI. No lactic acidosis or severe organ dysfunction. Ceftriaxone and IVF given. Qualifiers: Qualified Codes: A41.9 - Sepsis, unspecified organism Status: Resolved (3) Renal insufficiency Assessment & Plan: Improved with IVF, monitor, hold ACEI and metformin. Status: Resolved (4) Diabetes mellitus, type 2 Assessment & Plan: Hold home metformin and pioglitazone, resumed glipizide. Blood sugar ACHS and sliding scale insulin. Qualifiers: Status: Chronic (5) Hyperlipidemia Assessment & Plan: Resume home statin Status: Chronic (6) HTN (hypertension) Assessment & Plan: Resume home amlodipine and HCTZ, hold ACEI due to acute renal insufficiency. 01/20 resume lisinopril 01/21 Increased atenolol to 100 mg daily due to persistent hypertension Qualifiers: Qualified Codes: I10 - Essential (primary) hypertension Status: Acute Chief Complaint/HPI Chief Complaint/HPI 68 yo male started feeling ill about 2 days ago, having difficulty passing urine, feverish and sick to stomach. Yesterday he was confused and disoriented, went to walk in and got antibiotics for UTI but he continued to get worse and was vomiting his meds, so his family brought him to the ER. He is feeling better today. Daughter interprets and provides some history. Discharge Summary-Simple/Stand Consultations Discharge Physical Examination Allergies: Coded Allergies: No Known Drug Allergies (Unverified , 01/18/19) Vitals & I&Os Vital Sign - Last 12Hours Date Time Temp Pulse Resp B/P (MAP) Pulse Ox O2 Delivery O2 Flow Rate FiO2 01/21/19 08:00 100.3 77 18 189/88 (121) 97 Room Air Intake and Output 01/20/19 23:59 Intake Total 900 ml Output Total 1320 ml Balance -420 ml General Appearance: Alert, No Acute Distress Respiratory: Clear to Auscultation, Normal Air Movement Cardiovascular: Regular Rate, No Murmurs Neuro: Normal Speech Psych/Mental Status: Mood NL Hospital Course See final discharge diagnosis. Discharge Instructions to patient/family Please see electronic discharge instructions given to patient. Discharge Medications Reviewed and agree with Discharge Medication list on patient's Discharge Instruction sheet Clinical Quality Measures DVT/VTE Risk/Contraindication: Risk Factor Score Per Nursin RFS Level Per Nursing on Admit: 3=High LIZETH BRIONES MD Jan 21, 2019 13:04
[2019-01-21 13:45] VITALS: BP 181/86
--- NOTE | 2019-01-21 13:45 | NUR ---
ENEDINA SAAVEDRA AND DAUGHTER demonstrates understanding of discharge instructions and accurately returns instructions upon questioning. Copy of Post-Discharge Instructions given to PT. ENEDINA SAAVEDRA is able to manage continuing needs after discharge. Patients belongings returned to PT. Patient discharged from [facility] on 01/21/19 at 1345. ENEDINA SAAVEDRA left floor via AMB, accompanied by STAFF AND FAMILY PER AUTO.
== END 2019-01-21 13:45 | disposition home or self-care (01) | DRG 872 ==
LOC: EDUNIT# 23:23 → ER 23:28 → 4TH 01-19 01:25
PROVIDERS: ADMIT Family Medicine; ATTEND Family Medicine
DX: A41.9 Sepsis, unspecified organism (principal); N39.0 Urinary tract infection, site not specified; N28.9 Disorder of kidney and ureter, unspecified; E11.9 Type 2 diabetes mellitus without complications; I10 Essential (primary) hypertension; E78.5 Hyperlipidemia, unspecified; I44.0 Atrioventricular block, first degree
CPT/HCPCS: 36415; 71045; 74176; 80048; 80053; 81000; 82962; 83605; 85007; 85025; 85027; 85610; 85730; 87040; 87088; 96361; 96374; 96375

== ENCOUNTER → 2020-09-26 | Outpatient (CLI) | payer MEDICARE, MEDICAID ==
[~2020-09-26] MED LIST: AMLO-251 PO; ATEN100T PO; ATEN50TA PO; CEFD300C3 PO; GLIP10TA13 PO; LEVO500T80 PO; LISI1TAB46 PO; METF-399 PO; PANT40TA52 PO; PIOG45TA65 PO; SIMV20TA26 PO
--- NOTE | 2020-09-26 15:30 | Diagnostic Imaging Report ---
INDICATION: Status post ORIF. COMPARISON: None FINDINGS: Two radiographic views of the left humerus were obtained. Orthopedic side plate and screws are seen traversing the proximal portions of the humerus. There is nonacute appearing transverse right fracture through the proximal humeral shaft near the surgical neck. There is angulation of the fracture fragments with the apex projecting laterally. There is no prior available for comparison. No unexpected radiopaque foreign bodies are seen. Left shoulder and elbow joint spaces are otherwise intact. Note is made of postsurgical changes to the proximal ulna as well. This is described and separately performed and separately dictated in elbow radiograph's. IMPRESSION: 1. Fracture and postsurgical changes to the proximal left humerus as above. Dictated by: Dictated on workstation # [id number]
--- NOTE | 2020-09-26 15:34 | Diagnostic Imaging Report ---
INDICATION: Previous elbow surgery. COMPARISON: None FINDINGS: Multiple radiographic views of the left elbow were obtained. Multiple Harlan wires are identified within the proximal ulna. Note is made that the more lateral Harlan wire appears to extend lateral and anterior past the cortex of the proximal ulna. No unexpected radiopaque foreign bodies are seen. There is no acute fracture or dislocation of the left elbow. Moderate degenerative changes of the radial ulnar joint space are noted. There is no large joint effusion. IMPRESSION: 1. Postsurgical changes of the left elbow as described above. 2. No acute fracture or dislocation. Dictated by: Dictated on workstation # [id number]
--- NOTE | 2020-09-26 15:34 | Diagnostic Imaging Report ---
INDICATION: History of left shoulder ORIF. COMPARISON: None FINDINGS: Three radiographic views of the left shoulder were obtained. Patient is status post previous ORIF of the proximal left humerus. Note is made that there is separation involving the humeral head and superior portion of the orthopedic side plate. The most superior screw now resides outside the humeral head. There is significant lucency surrounding the remaining screws within the humeral head. Findings are consistent with loosening. There is also significant angulation at the chronic appearing fracture site with the apex projecting laterally. No unexpected radiopaque foreign bodies are identified. Included portions of the left hemithorax are clear. IMPRESSION: 1. Patient is status post previous ORIF of the proximal left humerus. 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 Dictated by: Dictated on workstation # [id number]
== END ==
LOC: RAD 13:32
PROVIDERS: ATTEND Family Medicine
DX: S42.202K Unspecified fracture of upper end of left humerus, subsequent encounter for fracture with nonunion (principal); Z96.612 Presence of left artificial shoulder joint
CPT/HCPCS: 73030; 73060; 73080

== ENCOUNTER → 2020-10-04 | Outpatient (CLI) | payer MEDICARE, MEDICAID | LOC: LABNPT 06:48 | PROVIDERS: ATTEND Orthopaedic Surgery | DX: Z01.812 Encounter for preprocedural laboratory examination (principal); Z20.822 Contact with and (suspected) exposure to COVID-19 | CPT/HCPCS: 87635 ==

== ENCOUNTER 2020-12-21 15:11 | Outpatient (RCR) | payer MEDICARE, MEDICAID | END 2021-03-20 11:25 | disposition home or self-care (01) | PROVIDERS: ATTEND Orthopaedic Surgery | DX: S42.222 2-part displaced fracture of surgical neck of left humerus (principal); X58.XXXS Exposure to other specified factors, sequela; I10 Essential (primary) hypertension; E11.9 Type 2 diabetes mellitus without complications ==

== ENCOUNTER 2021-05-04 14:50 | Emergency (ER) | payer MEDICARE, MEDICAID ==
[~2021-05-04] VITALS: Ht 167.7 cm; Wt 86.2 kg
[2021-05-04 15:08] LABS: BILIRUBIN,URINE NEGATIVE (NEGATIVE); CLARITY,URINE CLEAR; COLOR,URINE YELLOW; GLUCOSE, URINE (UA) 3+ (NEGATIVE); KETONES,URINE NEGATIVE (NEGATIVE); LEUKOCYTE ESTERASE ,URINE NEGATIVE (NEGATIVE); NITRITE,URINE NEGATIVE (NEGATIVE); PH,URINE 5.5 (5-9); PROTEIN,URINE NEGATIVE (NEGATIVE)
[2021-05-04 15:17] LABS: BACTERIA,URINE NEGATIVE /HPF; RBC,URINE 0-2 /HPF; WBC,URINE 0-2 /HPF
[2021-05-04 15:18] LABS: SQUAMOUS EPITHELIAL CELL,UR 0-2 /HPF
[2021-05-04] MEDS ORDERED: ONDANSETRON 4 MG/2 ML (SDV) Z0FRAN ONE (15:18)
[2021-05-04] MEDS ORDERED: NS IV 1000 ML 1,000 ML IV SCH (15:30)
[2021-05-04] MEDS ORDERED: ANTACID SUSP 30 ML UDC (MYLANTA) PO ONE (15:30)
[2021-05-04] MEDS ORDERED: ONDANSETRON 4 MG/2 ML (SDV) Z0FRAN IVP ONE (15:30)
[2021-05-04] MEDS ORDERED: LIDOCAINE 2% VISCOUS 15 ML UDC PO ONE (15:30)
[2021-05-04 15:38] LABS: BASOPHILS % (AUTO) 0 % (0-10); EOSINOPHILS # (AUTO) 0.2 10^3/uL (0.0-0.3); EOSINOPHILS % (AUTO) 3 % (0-10); HEMATOCRIT 35 % (40-54); HEMOGLOBIN 11.5 g/dL (13.3-17.7); LYMPHOCYTES # (AUTO) 1.4 X 10^3 (1.0-4.0); LYMPHOCYTES % (AUTO) 19 % (12-44); MEAN CORPUSCULAR HEMOGLOBIN 28 pg (25-34); MEAN CORPUSCULAR HGB CONC 33 g/dL (32-36); MEAN CORPUSCULAR VOLUME 85 fL (80-99); MEAN PLATELET VOLUME 10.7 fL (9.0-12.2); MONOCYTES # (AUTO) 0.7 X 10^3 (0.0-1.0); MONOCYTES % (AUTO) 9 % (0-12); NEUTROPHILS # (AUTO) 4.8 X 10^3 (1.8-7.8); NEUTROPHILS % (AUTO) 67 % (42-75); PLATELET COUNT 339 10^3/uL (130-400); WHITE BLOOD COUNT 7.2 10^3/uL (4.3-11.0)
[2021-05-04 15:49] LABS: ALBUMIN 3.7 GM/DL (3.2-4.5); CALCIUM 10.1 MG/DL (8.5-10.1); CREATININE SERUM 0.99 MG/DL (0.60-1.30); MAGNESIUM 1.8 MG/DL (1.6-2.4); POTASSIUM 5.2 MMOL/L (3.6-5.0); TOTAL PROTEIN 7.4 GM/DL (6.4-8.2)
[2021-05-04] MEDS ORDERED: SUCR1TAB36 PO (17:10)
[2021-05-04] MEDS ORDERED: ONDA4TAB11 SL (17:10)
--- NOTE | 2021-05-04 17:12 | ED Abdominal Pain ---
General Chief Complaint: Abdominal/GI Problems Stated Complaint: BACK/ABD PAIN, N/V Nursing Triage Note: PT AMB TO RM 5 ALONGSIDE DAUGHTER. DAUGHTER INFORMS THIS RN THAT SHE CAN INTERPRET FOR HIM AND THEY HAVE DECLINED SPECIAL SERVICE OFFICER SERVICES. PT WAS VACATIONING IN [place] FOR THE PAST 2 WEEKS. ON THURSDAY HE WENT TO A DR IN [place] FOR ABD PAIN. DR INFORMED PT THAT HE HAD HYPERGLYCEMIA, SLUDGE IN GALLBLADDER, CHRONIC CHOLECYSTITIS, AND BILAT RENAL CYSTS. PT STAYED ONE OVERNIGHT IN HOSPITAL IN [place]. PT FAMILY PICKED PT UP FROM [place] TODAY TO COME BACK TO THE [place] FOR FURTHER EVALUATION. TODAY PT C/O N/V, AND ABD PAIN. PT A&OX4. Source of Information: Patient, Family, Old Records Exam Limitations: Language Barrier History of Present Illness Date Seen by Provider: May 04, 2021 Time Seen by Provider: 14:55 Initial Comments This 70-year-old gentleman presents to the emergency room accompanied by his daughter requesting assistance with his abdominal pain and hyperglycemia after having a hospital visit in [place]. Patient spent 2 weeks visiting in [place] where he was hospitalized with abdominal pain and hyperglycemia. He had an ultrasound performed there. This report was in [place] and was reviewed with the assistance of patient's daughter and [place]-speaking nursing staff. The ultrasound performed on April 29 revealed thickened gallbladder wall and sludge consistent with chronic cholecystitis. No stones or obstruction were identified. Liver was unremarkable. Bilateral renal cysts were also noted. Patient was advised in [place] that he would need surgery. Blood sugars were also elevated and he was started on insulin in the hospital. No insulin was prescribed on discharge. Patient continues to have epigastric pain. He returned from [place] yesterday and his family is concerned as they are confused about the direction he needs to take with his health care. He reports blood sugars have been in the 300s. His pain is epigastric and associated with nausea and vomiting. It is not necessarily affected by food. His primary care provider has been Dr. Doss. He has been assigned a new provider at [facility] outpatient clinics but he does not yet know that provider. Interview was conducted with the assistance of his daughter who acted as industrial truck driver along with [place]an-speaking nursing staff. Allergies and Home Medications Allergies Coded Allergies: No Known Drug Allergies (Unverified , 01/18/19) Patient Home Medication List Home Medication List Reviewed: Yes Amlodipine Besylate (Amlodipine Besylate) 10 Mg Tablet, 10 MG PO DAILY, (Reported) Entered as Reported by: BRIANNA BOBBY on 01/19/19907 Atenolol (Atenolol) 100 Mg Tablet, 100 MG PO DAILY Prescribed by: LIZETH BRIONES on 01/21/19 130 Cefdinir (Cefdinir) 300 Mg Capsule, 300 MG PO BID Prescribed by: LIZETH BRIONES on 01/21/19 130 Glipizide (Glipizide) 10 Mg Tablet, 20 MG PO BID, (Reported) Entered as Reported by: BRIANNA BOBBY on 01/19/19907 Lisinopril/Hydrochlorothiazide (Lisinopril-Hctz 20-12.5 mg Tab) 1 Each Tablet, 1 TAB PO BID, (Reported) Entered as Reported by: BRIANNA BOBBY on 01/19/19907 Metformin HCl (Metformin HCl) 1,000 Mg Tablet, 1,000 MG PO BID, (Reported) Entered as Reported by: BRIANNA BOBBY on 01/19/19907 Ondansetron (Ondansetron Odt) 4 Mg Tab.rapdis, 4 MG SL Q4H PRN for NAUSEA/VOMITING Prescribed by: BONNIE CHU on 05/04/211709 Pantoprazole Sodium (Pantoprazole Sodium) 40 Mg Tablet.dr, 40 MG PO DAILY, (Reported) Entered as Reported by: BRIANNA BOBBY on 01/19/19907 Pioglitazone HCl (Pioglitazone HCl) 45 Mg Tablet, 45 MG PO DAILY, (Reported) Entered as Reported by: BRIANNA BOBBY on 01/19/19907 Simvastatin (Simvastatin) 20 Mg Tablet, 20 MG PO HS, (Reported) Entered as Reported by: BRIANNA BOBBY on 01/19/19907 Sucralfate (Carafate) 1 Gm Tablet, 1 GM PO QID Prescribed by: BONNIE CHU on 05/04/211709 Review of Systems Review of Systems Constitutional: no symptoms reported EENTM: No Symptoms Reported Respiratory: No Symptoms Reported Cardiovascular: No Symptoms Reported Gastrointestinal: See HPI Genitourinary: Frequency, Other (Polyuria) Musculoskeletal: no symptoms reported Skin: no symptoms reported Psychiatric/Neurological: No Symptoms Reported Endocrine: See HPI Hematologic/Lymphatic: No Symptoms Reported Past Lnwsuah-Wfylet-Scidkz Hx Patient Social History Tobacco Use?: No Use of E-Cig and/or Vaping dev: No Substance use?: No Alcohol Use?: No Pt feels they are or have been: No Immunizations Up To Date First/Initial COVID19 Vaccinat: 12/25/2020 Second COVID19 Vaccination Marcelino: 01/25/2021 COVID19 Vaccine Bookmobile Clerk: MODERNA Seasonal Allergies Seasonal Allergies: No Past Medical History Surgery/Hospitalization HX: SX: LEFT SHOULDER RECONSTRUCTION Surgeries: Yes (COLONOSCOPY 2007) Orthopedic (Shoulder) Respiratory: No Cardiac: Yes High Cholesterol, Hypertension Neurological: No Genitourinary: No Gastrointestinal: Yes Hemorrhoids Musculoskeletal: No Endocrine: Yes Diabetes, Non-Insulin dep HEENT: No Cancer: No Psychosocial: No Integumentary: No Blood Disorders: No Family Medical History Patient reports no known family medical history. Diabetes Physical Exam Vital Signs Vital Signs - First Documented 05/04/21 14:57 Temp 36.4 Pulse 77 Resp 20 B/P (MAP) 183/91 (121) Pulse Ox 99 O2 Delivery Room Air Capillary Refill : Less Than 3 Seconds Height/Weight/BMI Height: 5'10.00" Weight: 206lbs. 2.0oz. 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 as tested, no motor/sensory deficits, alert, normal mood/affect, oriented x 3 Skin: normal color, warm/dry Progress/Results/Core Measures Results/Orders Lab Results Laboratory Tests Test 05/04/21 14:58 05/04/21 15:10 05/04/21 15:16 05/04/21 17:10 Range/Units Urine Color YELLOW Urine Clarity CLEAR Urine pH 5.5 5-9 Urine Specific [place] 1.020 1.016-1.022 Urine Protein NEGATIVE NEGATIVE Urine Glucose (UA) 3+ H NEGATIVE Urine Ketones NEGATIVE NEGATIVE Urine Nitrite NEGATIVE NEGATIVE Urine Bilirubin NEGATIVE NEGATIVE Urine Urobilinogen 0.2 < = 1.0 MG/DL Urine Leukocyte Esterase NEGATIVE NEGATIVE Urine RBC (Auto) 1+ H NEGATIVE Urine RBC 0-2 /HPF Urine WBC 0-2 /HPF Urine Squamous Epithelial Cells 0-2 /HPF Urine Crystals NONE /LPF Urine Bacteria NEGATIVE /HPF Urine Casts NONE /LPF Urine Mucus SMALL H /LPF Urine Culture Indicated NO White Blood Count 7.2 4.3-11.0 10^3/uL Red Blood Count 4.05 L 4.30-5.52 10^6/uL Hemoglobin 11.5 L 13.3-17.7 g/dL Hematocrit 35 L 40-54 % Mean Corpuscular Volume 85 80-99 fL Mean Corpuscular Hemoglobin 28 25-34 pg Mean Corpuscular Hemoglobin Concent 33 32-36 g/dL Red Cell Distribution Width 13.5 10.0-14.5 % Platelet Count 339 130-400 10^3/uL Mean Platelet Volume 10.7 9.0-12.2 fL Immature Granulocyte % (Auto) 2 % Neutrophils (%) (Auto) 67 42-75 % Lymphocytes (%) (Auto) 19 12-44 % Monocytes (%) (Auto) 9 0-12 % Eosinophils (%) (Auto) 3 0-10 % Basophils (%) (Auto) 0 0-10 % Neutrophils # (Auto) 4.8 1.8-7.8 X 10^3 Lymphocytes # (Auto) 1.4 1.0-4.0 X 10^3 Monocytes # (Auto) 0.7 0.0-1.0 X 10^3 Eosinophils # (Auto) 0.2 0.0-0.3 10^3/uL Basophils # (Auto) 0.0 0.0-0.1 10^3/uL Immature Granulocyte # (Auto) 0.1 0.0-0.1 10^3/uL Prothrombin Time 13.9 12.2-14.7 SEC INR Comment 1.0 0.8-1.4 Sodium Level 132 L 135-145 MMOL/L Potassium Level 5.2 H 3.6-5.0 MMOL/L Chloride Level 100 98-107 MMOL/L Carbon Dioxide Level 20 L 21-32 MMOL/L Anion Gap 12 5-14 MMOL/L Blood Urea Nitrogen 17 7-18 MG/DL Creatinine 0.99 0.60-1.30 MG/DL Estimat Glomerular Filtration Rate 75 BUN/Creatinine Ratio 17 Glucose Level 358 H 70-105 MG/DL Calcium Level 10.1 8.5-10.1 MG/DL Corrected Calcium 10.3 H 8.5-10.1 MG/DL Magnesium Level 1.8 1.6-2.4 MG/DL Total Bilirubin 1.0 0.1-1.0 MG/DL Aspartate Amino Transf (AST/SGOT) 82 H 5-34 U/L Alanine Aminotransferase (ALT/SGPT) 155 H 0-55 U/L Alkaline Phosphatase 375 H 40-136 U/L C-Reactive Protein High Sensitivity 3.95 H 0.00-0.50 MG/DL Total Protein 7.4 6.4-8.2 GM/DL Albumin 3.7 3.2-4.5 GM/DL Lipase 114 H 8-78 U/L Glucometer 329 H 319 H 70-110 MG/DL Test 05/04/21 17:15 Range/Units Ammonia 19 11-32 UMOL/L My Orders Orders - BONNIE COLE MD Ua Culture If Indicated (05/04/21 14:55) Ondansetron Injection (Zofran Injectio (05/04/21 15:18) Ed Iv/Invasive Line Start (05/04/21 15:27) Ns Iv 1000 Ml (Sodium Chloride 0.9%) (05/04/21 15:30) Lidocaine 2% Viscous 15 Ml (Xylocaine Vi (05/04/21 15:30) Antacid Suspension (Mylanta Suspension (05/04/21 15:30) Cbc With Automated Diff (05/04/21 15:27) Comprehensive Metabolic Panel (05/04/21 15:27) Hs C Reactive Protein (05/04/21 15:27) Lipase (05/04/21 15:27) Magnesium (05/04/21 15:27) Ondansetron Injection (Zofran Injectio (05/04/21 15:30) Accucheck Stat ONCE (05/04/21 16:09) Hepatitis Panel Acute (05/04/21 16:26) Ammonia (05/04/21 17:12) Protime With Inr (11/6/21 17:12) Medications Given in ED Current Medications Medications Dose Ordered Sig/Adrián Route Start Time Stop Time Status Last Admin Dose Admin Al Hydrox/Mg Hydrox/Simethicone 30 ml ONCE ONCE PO 05/04/21 15:30 05/04/21 15:31 DC 05/04/21 15:52 30 ML Lidocaine HCl 15 ml ONCE ONCE PO 05/04/21 15:30 05/04/21 15:31 DC 05/04/21 15:52 15 ML Ondansetron HCl 4 mg ONCE ONCE IVP 05/04/21 15:30 05/04/21 15:31 DC 05/04/21 15:20 4 MG Vital Signs/I&O 05/04/21 05/04/21 14:57 18:16 Temp 36.4 Pulse 77 66 Resp 20 20 B/P (MAP) 183/91 (121) 154/76 Pulse Ox 99 99 O2 Delivery Room Air Room Air Blood Pressure Mean: 121 Progress Progress Note : Progress Note Patient was treated with Zofran and GI cocktail was administered to treat the epigastric pain. He did have significant relief with GI cocktail. The gallbladder disease was questioned as the primary cause of his epigastric pain. He likely has a combination of of etiologies including esophagitis or gastritis. Labs were assessed and he did have an upward trend of his lipase and transaminases. Ammonia and INR were normal. I reviewed his medications extensively. He is on 2 beta-blockers, metoprolol and atenolol. I have advised him to stop the metoprolol and continue the atenolol. I also advised him to hold the atorvastatin as it may be responsible for his liver enzyme elevation. Due to the recent travel, I also ordered an acute hepatitis panel which is pending. Patient received IV fluids to help manage his blood sugar. Blood sugar did trend down after fluids were received. For further treatment of hyperglycemia I recommended increasing his glimepiride and eating a low sugar, low carbohydrate diet. Dr. Kimble was consulted by phone. He would like to see the patient in his clinic next week. Labs were ordered by prescription for a Thursday to follow the trend of his liver enzymes. Patient was prescribed Zofran and omeprazole for further treatment of his GI symptoms. All questions were answered and discharge instructions were reviewed with the patient. Reviewed discharge instructions for further details. Departure Impression Primary Impression: Chronic cholecystitis Additional Impressions: Epigastric pain Poorly controlled type 2 diabetes mellitus Nausea and vomiting Qualified Codes: R11.2 - Nausea with vomiting, unspecified Elevated transaminase level Disposition: 01 HOME, SELF-CARE Condition: Improved Departure-Patient Inst. Decision time for Depature: 17:07 Referrals: [facility] (PCP/Family) Primary Care Physician PRAVEEN KIMBLE MD Patient Instructions: Abdominal Pain, Adult ED, Gallbladder Diet, Type 2 Diabetes Add. Discharge Instructions: Diabetes: To better control your diabetes increase glimepiride to 4 mg daily. Reduce or skip this medication if you are not eating. If this medication is taken without eating, it may cause a dangerous drop in blood sugar. Also drink plenty of water and eat a diet low in sugar and carbohydrates. Drink plenty of water. Check blood sugars at least twice daily, preferably fasting in the morning and then 2 hours after a meal. High blood pressure: Stop metoprolol and continue atenolol. Metoprolol and atenolol are in the same class of medications and you do not need to take both of them. Gallbladder, liver enzymes, and abdominal pain: Follow-up with Dr. Kimble as soon as possible. Call his office on Thursday morning to make arrangements. Repeat lab work on Thursday. Bring the prescription for lab work to the hospital. Check-in at registration and lab work will be drawn here at the hospital. Eat a diet low in fats and oils. This will prevent irritation of the gallbladder. Also to prevent irritation of the stomach (gastritis) and esophagus (esophagitis). Avoid foods that irritate the stomach such as spicy foods, alcohol, tobacco, mints, citrus fruits and juices, tomato products, NSAID medications such as ibuprofen or naproxen, or anything else you know irritate your stomach. You may take Zofran (ondansetron) for nausea and vomiting. For stomach irritation add Carafate (sucralfate). Crush these tablets or dissolved in 5 to 10 mL water. Drink this 30 minutes before meals and before bedtime. Panclasa is a medication not distributed in the [place]. I therefore cannot recommend for or against its use. If it does not seem to be improving your abdominal pain or cramping, you probably should not take it. Stop atorvastatin as this medication may worsen your liver enzymes. Call with questions or concerns. Return to the ER if you have worsening symptoms. Follow-up with your primary care provider at the [facility] as soon as possible. Please call Thursday for an appointment. All discharge instructions reviewed with patient and/or family. Voiced understanding. Scripts Sucralfate (Carafate) 1 Gm Tablet 1 GM PO QID, #120 TAB Crush or dissolve in 5-10 mL water to make slurry. Take 30 minutes before meals and bedtime. Prov: BONNIE COLE MD 05/04/21 Ondansetron (Ondansetron Odt) 4 Mg Tab.rapdis 4 MG SL Q4H PRN for NAUSEA/VOMITING, #20 TAB Prov: BONNIE COLE MD 05/04/21 Copy Copies To 1: PRAVEEN KIMBLE MD, JOSHUA T MD May 04, 2021 17:12
[2021-05-04 17:35] LABS: PROTHROMBIN TIME PATIENT 13.9 SEC (12.2-14.7)
[2021-05-04 18:16] VITALS: BP 154/76
[2021-05-06 15:22] LABS: HEPATITIS C ANTIBODY C Non-Reactive (Non-Reactive)
== END 2021-05-04 18:16 | disposition home or self-care (01) ==
LOC: EDUNIT# 14:50 → ER 14:52
DX: K81.1 Chronic cholecystitis (principal); E11.9 Type 2 diabetes mellitus without complications; R74.01 Elevation of levels of liver transaminase levels; I10 Essential (primary) hypertension; E78.00 Pure hypercholesterolemia, unspecified; Z79.84 Long term (current) use of oral hypoglycemic drugs; Z79.899 Other long term (current) drug therapy
CPT/HCPCS: 36415; 80053; 80074; 81000; 82140; 82947; 83690; 83735; 85025; 85610; 86141

== ENCOUNTER → 2021-05-06 | Outpatient (CLI) | payer MEDICARE, MEDICAID ==
[~2021-05-06] MED LIST changes: +ASPI-999 PO; +ATOR20TA66 PO; +GLIM2TAB4 PO; +HYDR12.56 PO; +LISI10TA25 PO; +ONDA4TAB11 SL; +SITA100T12 PO; +SUCR1TAB36 PO
[2021-05-06 08:02] LABS: HEMATOCRIT 36 % (40-54); HEMOGLOBIN 11.8 g/dL (13.3-17.7); MEAN CORPUSCULAR HEMOGLOBIN 28 pg (25-34); MEAN CORPUSCULAR HGB CONC 33 g/dL (32-36); MEAN CORPUSCULAR VOLUME 86 fL (80-99); MEAN PLATELET VOLUME 10.2 fL (9.0-12.2); PLATELET COUNT 413 10^3/uL (130-400); WHITE BLOOD COUNT 8.1 10^3/uL (4.3-11.0)
[2021-05-06 08:21] LABS: ALBUMIN 3.5 GM/DL (3.2-4.5); POTASSIUM 4.7 MMOL/L (3.6-5.0)
[2021-05-06 08:22] LABS: CALCIUM 9.4 MG/DL (8.5-10.1)
[2021-05-06 08:25] LABS: BILIRUBIN,TOTAL 0.7 MG/DL (0.1-1.0)
[2021-05-06 08:27] LABS: CREATININE SERUM 1.03 MG/DL (0.60-1.30)
== END ==
LOC: LAB 07:41
PROVIDERS: ATTEND Family Medicine
DX: K81.1 Chronic cholecystitis (principal); E11.9 Type 2 diabetes mellitus without complications; R74.01 Elevation of levels of liver transaminase levels
CPT/HCPCS: 36415; 80053; 82150; 83036; 83690; 85027

== ENCOUNTER 2021-05-07 09:09 | Outpatient (CLI) | payer MEDICARE, MEDICAID ==
[~2021-05-07] VITALS: Ht 170.2 cm; Wt 83.5 kg
[~2021-05-07 09:09] MED LIST changes: -ASPI-999 PO; -ATOR20TA66 PO; -GLIM2TAB4 PO; -HYDR12.56 PO; -LISI10TA25 PO; -SITA100T12 PO
[2021-05-07] MEDS ORDERED: ASPI-999 PO (09:44)
[2021-05-07] MEDS ORDERED: HYDR12.56 PO (09:44)
[2021-05-07] MEDS ORDERED: ATEN100T PO (09:44)
[2021-05-07] MEDS ORDERED: LISI10TA25 PO (09:44)
[2021-05-07] MEDS ORDERED: SITA100T12 PO (09:44)
[2021-05-07] MEDS ORDERED: ATOR20TA66 PO (09:44)
[2021-05-07] MEDS ORDERED: GLIM2TAB4 PO (09:44)
== END 2021-05-07 10:01 | disposition home or self-care (01) ==
LOC: PREOP 09:09
PROVIDERS: ATTEND Surgery
DX: Z01.818 Encounter for other preprocedural examination (principal)

== ENCOUNTER 2021-05-08 11:01 | Day surgery (SDC) | payer MEDICARE, MEDICAID ==
[~2021-05-08] VITALS: Ht 170 cm; Wt 83.5 kg
[2021-05-08] VITALS (13 sets, daily range): BP systolic 119–163; BP diastolic 60–77
[~2021-05-08 11:01] MED LIST changes: +ASPI-999 PO; +ATOR20TA66 PO; +GLIM2TAB4 PO; +HYDR12.56 PO; +LISI10TA25 PO; +SITA100T12 PO
--- NOTE | 2021-05-08 11:21 | Progress Note-Pre Operative ---
Pre-Operative Progress Note H&P Reviewed The H&P was reviewed, patient examined and no changes noted. Date Seen by Provider: May 08, 2021 Time Seen by Provider: 11:15 Date H&P Reviewed: May 08, 2021 Time H&P Reviewed: 11:15 Pre-Operative Diagnosis: chronic calculous cholecystitis PRAVEEN MEJÍA MD May 08, 2021 11:21
--- NOTE | 2021-05-08 11:23 | Discharge Inst-Surgical ---
D/C Lap Instructions-ALFONZO Follow Up Activity as tolerated High Fiber Diet 25g or more per day Avoid Alcohol, Caffeine, Spicy Galien and Acid foods. Drink 64 fluid oz or more of fluids per day. Symptoms to Report: Fever over 101 degree F, Nausea/Vomiting If any problems/questions: Contact your physician or go to Emergency Room PRAVEEN MEJÍA MD May 08, 2021 11:23
[2021-05-08] MEDS ORDERED: ceFAZolin 2 GM IV Premixed 50 ML IV ONE (11:30)
[2021-05-08] MEDS ORDERED: ONDANSETRON 4 MG/2 ML (SDV) Z0FRAN IVP PRN ×3 (11:30→14:30)
[2021-05-08] MEDS ORDERED: ONDANSETRON 4 MG (ZOFRAN) ORAL DISSOLVE TAB PO PRN (11:30)
[2021-05-08] MEDS: LACTATED RINGERS 1,000 ML IV PRN ×2 (11:33→13:26)
[2021-05-08] MEDS ORDERED: LIDOCAINE/EPI 1%-1:200,000 (XYLOCAINE) 30 ML VIAL ONE (11:44)
[2021-05-08] MEDS ORDERED: ACETAMINOPHEN 325 MG TABLET PO PRN (12:15)
[2021-05-08] MEDS ORDERED: morphine INJ 10 MG/ML 1ML (SYR OR VIAL) IVP PRN ×2 (12:15)
[2021-05-08] MEDS ORDERED: oxyCODONE/APAP 5/325MG (PERCOCET 5) TABLET PO PRN (12:15)
[2021-05-08] MEDS ORDERED: LIDOCAINE PF 2% 5 ML (XYLOCAINE) VIAL ONE (12:29)
[2021-05-08] MEDS ORDERED: proPOfol 200 MG/20 ML (DIPRIVAN) VIAL IV ONE (12:29)
[2021-05-08] MEDS ORDERED: ROCURONIUM 10 MG/ML 5 ML SYRINGE IV ONE (12:29)
[2021-05-08] MEDS ORDERED: fentaNYL INJ 100 MCG/2 ML AMP ONE (12:29)
[2021-05-08] MEDS ORDERED: MIDAZOLAM 2 MG/2 ML (VERSED) VIAL ONE (12:30)
--- NOTE | 2021-05-08 13:36 | Progress Note-Post Operative ---
Post-Operative Progess Note Surgeon (s)/Box Toe Cutter (s) Surgeon PRAVEEN MEJÍA MD Box Toe Cutter: susy sorensen AUTOMATION DRIVER Pre-Operative Diagnosis chronic calculous cholecystitis Post-Operative Diagnosis same Procedure & Operative Findings Date of Procedure 05/08/21 Procedure Performed/Findings laparoscopic cholecystectomy. Anesthesia Type get Estimated Blood Loss Estimated blood loss (mL): minimal Specimens/Packing Specimens Removed gallbladder PRAVEEN MEJÍA MD May 08, 2021 13:36
[2021-05-08] MEDS ORDERED: NEOSTIGMINE 3 MG/3 ML VIAL ONE (13:45)
[2021-05-08] MEDS ORDERED: SEVOFLURANE (ULTANE) 15 ML INHAL SOLN ONE (13:45)
[2021-05-08] MEDS ORDERED: GLYCOPYRROLATE 0.2 MG/ML (ROBINUL) 2 ML VIAL ONE (13:45)
[2021-05-08] MEDS ORDERED: morphine INJ 10 MG/ML 1ML (SYR OR VIAL) ONE (14:29)
[2021-05-08] MEDS ORDERED: morphine INJ 10 MG/ML 1ML (SYR OR VIAL) IVP ONE (14:30)
[2021-05-08] MEDS ORDERED: fentaNYL INJ 100 MCG/2 ML AMP IVP ONE (14:30)
[2021-05-08] MEDS ORDERED: oxyCODONE/APAP 5/325MG (PERCOCET 5) TABLET ONE (15:33)
--- NOTE | 2021-05-08 23:26 | OPERATIVE REPORT ---
DATE OF SERVICE: 05/08/2021 PRIMARY TEMPERING OVEN OPERATOR: [facility]. PREOPERATIVE DIAGNOSIS: Symptomatic chronic calculous cholecystitis. POSTOPERATIVE DIAGNOSIS: Symptomatic chronic calculous cholecystitis. PROCEDURE: Laparoscopic cholecystectomy. SURGEON: Praveen Mejía MD. ANESTHESIA: General endotracheal. ESTIMATED BLOOD LOSS: Minimal. FINDINGS: Distended gallbladder with gallbladder wall thickening. DISPOSITION: The patient tolerated the procedure well. INDICATIONS: The patient is a 70-year-old male who presented to the Emergency Department with acute on chronic cholecystitis. He reports that he was vacationing in [place] and was worked up and found to have the acute cholecystitis; however, he deferred surgical intervention until he returned [facility]. He reports that he has improved; however, had another episode of pain in the right upper abdominal quadrant with associated nausea and vomiting. He was found to have thickened gallbladder wall as well as sludge. DESCRIPTION OF PROCEDURE: The patient was brought to the operating room, laid supine on the table. After adequate IV pain and sedative medications and general endotracheal intubation, the abdomen was prepped and draped in standard surgical fashion. A 0.5% Marcaine with epinephrine was used to anesthetize overlying skin in the left upper abdominal quadrant and transverse skin incision made using a 15 blade. An 0 silk suture was applied to the medial aspect incision for retraction and a Veress needle inserted with low opening pressure of 0 mmHg. The abdomen was insufflated to 15 mmHg pressure. The Veress needle removed and a 5 mm XL trocar placed followed by a 5 mm 45-degree angle laparoscope visualizing the peritoneal cavity. A 4-quadrant abdominal exploration was performed. There was a distended gallbladder with gallbladder wall thickening consistent with acute on chronic cholecystitis. We then proceeded to place a supraumbilical 10 mm port after the skin and peritoneal lining were anesthetized using 0.5% Marcaine with epinephrine, and a transverse skin incision made using 15 blade. In a similar manner, a right upper abdominal quadrant 5 mm port was placed. The omental adhesions were then taken down bluntly and the fundus of the gallbladder was then retracted anteriorly and superiorly. The patient was then placed in the reverse Trendelenburg position as well as plane right side up, left side down. The hepatoduodenal ligament was then dissected using blunt dissection as well as electrocautery on hook instrument as well as a [place] dissector. The entire critical view of safety was identified including the triangle of Calot as well as the cystic duct and artery as only two structures going to gallbladder as well as the cystic plate behind the proximal gallbladder. A timeout was then taken, and cystic duct and artery were then clipped proximally and distally and cut with EndoShears. The gallbladder was then dissected off the liver bed using electrocautery on hook instrument with visualization of good hemostasis as well as no leaking ducts of Luschka. The gallbladder was removed through the 10 mm port site using an EndoCatch bag. The fascia and peritoneum to the 10 mm port site fascia were then closed under direct visualization using a Casey-Jose device and 0 Vicryl suture. The abdomen was desufflated and remaining ports removed. All skin incisions were closed using 4-0 Monocryl running subcuticular sutures. Wounds were then cleaned and covered with Dermabond. The patient tolerated the procedure well. We will start IV and oral pain medication as well as clear liquid diet and ambulation. Once he meets this criteria we will just discharge him home. He will be instructed to do no heavy lifting or exertion for the next two weeks. Job ID: [id number] DocumentID: [id number] Dictated Date: 05/08/2021 13:41:27 Furniture Sales Associate Date: 05/08/2021 23:25:56 Dictated By: PRAVEEN MEJÍA MD [facility] [place] [facility]
== END 2021-05-08 16:05 | disposition home or self-care (01) ==
LOC: SDC 11:01
PROVIDERS: ATTEND Surgery
DX: K80.12 Calculus of gallbladder with acute and chronic cholecystitis without obstruction (principal); E11.9 Type 2 diabetes mellitus without complications; I10 Essential (primary) hypertension; K21.9 Gastro-esophageal reflux disease without esophagitis; E78.5 Hyperlipidemia, unspecified; K76.0 Fatty (change of) liver, not elsewhere classified; K75.9 Inflammatory liver disease, unspecified; Z79.899 Other long term (current) drug therapy; Z79.84 Long term (current) use of oral hypoglycemic drugs; Z11.2 Encounter for screening for other bacterial diseases
CPT/HCPCS: 82947; 87081; 88304

== ENCOUNTER 2021-05-09 09:32 | Emergency (ER) | payer MEDICARE, MEDICAID ==
[~2021-05-09] VITALS: Ht 162.5 cm; Wt 87.7 kg
--- NOTE | 2021-05-09 10:56 | ED General ---
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 REPORTS BLOOS SUGAR IS 300 TAKE PO MEDS FOR DIABETES. 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 He denies any symptoms other than frequent urination and otherwise feels okay. He just had a laparoscopic cholecystectomy yesterday for chronic acalculous cholecystitis. He denies any abdominal pain. Timing/Duration: 3-4 Days Severity: Moderate Associated Systoms: Denies Symptoms Allergies and Home Medications Allergies Coded Allergies: No Known Drug Allergies (Unverified , 05/08/21) Patient Home Medication List Home Medication List Reviewed: Yes Amlodipine Besylate (Amlodipine Besylate) 10 Mg Tablet, 10 MG PO DAILY, (Reported) Entered as Reported by: BRIANNA BOBBY on 01/19/19 0908 Aspirin (Aspirin) 81 Mg Tab.chew, 81 MG PO DAILY, (Reported) Entered as Reported by: GINNY STRONG on 05/07/21 09 Atenolol (Atenolol) 100 Mg Tablet, 100 MG PO DAILY, (Reported) Entered as Reported by: GINNY STRONG on 05/07/21 09 Atorvastatin Calcium (Atorvastatin Calcium) 20 Mg Tablet, 20 MG PO DAILY, (Reported) Entered as Reported by: GINNY STRONG on 05/07/21 09 Glimepiride (Glimepiride) 2 Mg Tablet, 2 MG PO DAILY, (Reported) Entered as Reported by: GINNY STRONG on 05/07/21 09 Hydrochlorothiazide (Hydrochlorothiazide) 12.5 Mg Tablet, 12.5 MG PO DAILY, (Reported) Entered as Reported by: GINNY STRONG on 05/07/21 09 Lisinopril (Lisinopril) 10 Mg Tablet, 10 MG PO DAILY, (Reported) Entered as Reported by: GINNY STRONG on 05/07/21 09 Metformin HCl (Metformin HCl) 1,000 Mg Tablet, 1,000 MG PO BID, (Reported) Entered as Reported by: BRIANNA BOBBY on 01/19/19 09 Ondansetron (Ondansetron Odt) 4 Mg Tab.rapdis, 4 MG SL Q4H PRN for NAUSEA/VOMITING Prescribed by: BONNIE CHU on 05/04/21 1710 Pantoprazole Sodium (Pantoprazole Sodium) 40 Mg Tablet.dr, 40 MG PO DAILY, (Reported) Entered as Reported by: BRIANNA BOBBY on 01/19/19 09 Sitagliptin Phosphate (Januvia) 100 Mg Tablet, 100 MG PO DAILY, (Reported) Entered as Reported by: GINNY STRONG on 05/07/21 09 Sucralfate (Carafate) 1 Gm Tablet, 1 GM PO QID Prescribed by: BONNIE CHU on 05/04/21 171 Discontinued Medications Atenolol (Atenolol) 100 Mg Tablet, 100 MG PO DAILY Discontinued Reason: New Order Prescribed by: LIZETH BRIONES on 01/21/19 1301 Cefdinir (Cefdinir) 300 Mg Capsule, 300 MG PO BID Discontinued Reason: No Longer Taking Prescribed by: LIZETH BRIONES on 01/21/19 1301 Glipizide (Glipizide) 10 Mg Tablet, 20 MG PO BID, (Reported) Discontinued Reason: No Longer Taking Entered as Reported by: BRIANNA BOBBY on 01/19/19907 Lisinopril/Hydrochlorothiazide (Lisinopril-Hctz 20-12.5 mg Tab) 1 Each Tablet, 1 TAB PO BID, (Reported) Discontinued Reason: New Order Entered as Reported by: BRIANNA BOBBY on 01/19/19 09 Pioglitazone HCl (Pioglitazone HCl) 45 Mg Tablet, 45 MG PO DAILY, (Reported) Discontinued Reason: No Longer Taking Entered as Reported by: BRIANNA BOBBY on 01/19/19 09 Simvastatin (Simvastatin) 20 Mg Tablet, 20 MG PO HS, (Reported) Discontinued Reason: No Longer Taking Entered as Reported by: BRIANNA BOBBY on 01/19/19907 Review of Systems Review of Systems Constitutional: see HPI EENTM: see HPI Respiratory: no symptoms reported Cardiovascular: no symptoms reported Genitourinary: no symptoms reported Musculoskeletal: no symptoms reported Skin: no symptoms reported Psychiatric/Neurological: No Symptoms Reported Hematologic/Lymphatic: No Symptoms Reported Immunological/Allergic: no symptoms reported Past Qwbcjeq-Oyhqej-Uhrupn Hx Patient Social History Tobacco Use?: No Substance use?: No Alcohol Use?: No Pt feels they are or have been: No Immunizations Up To Date Tetanus Booster (TDap): Unknown First/Initial COVID19 Vaccinat: JAN Second COVID19 Vaccination Marcelino: FEB COVID19 Vaccine Professor 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: 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 Seasonal Allergies Seasonal Allergies: No Past Medical History Surgery/Hospitalization HX: SX: LEFT SHOULDER RECONSTRUCTION Surgeries: Yes (COLONOSCOPY, L SHOULDER SURGERY X 2) Orthopedic Respiratory: No Currently Using CPAP: No Currently Using BIPAP: No Cardiac: Yes High Cholesterol, Hypertension Neurological: No Genitourinary: No Gastrointestinal: Yes Gastroesophageal Reflux Musculoskeletal: No Endocrine: Yes Diabetes, Non-Insulin dep HEENT: Yes (WEARS READERS) Hearing Impairment: Denies Cancer: No Psychosocial: No Integumentary: No Blood Disorders: No Family Medical History Patient reports no known family medical history. Diabetes Physical Exam Vital Signs Vital Signs - First Documented 05/09/21 09:36 Temp 35.9 Pulse 62 Resp 18 B/P (MAP) 159/73 (101) Pulse Ox 99 Capillary Refill : Less Than 3 Seconds Height, Weight, BMI Height: 5'10.00" Weight: 206lbs. 2.0oz. 93.746838iu; 33.00 BMI Method:Actual General Appearance: No Apparent Distress, WD/WN Eyes: Bilateral Eye Normal Inspection, Bilateral Eye PERRL, Bilateral Eye EOMI Neck: Full Range of Motion, Normal Inspection Respiratory: No Accessory Muscle Use, No Respiratory Distress Cardiovascular: Regular Rate, Rhythm, Normal Peripheral Pulses Gastrointestinal: Normal Bowel Sounds, Non Tender, Soft Extremity: Normal Capillary Refill, Normal Inspection Neurologic/Psychiatric: Alert, Oriented x3 Skin: Normal Color, Warm/Dry Progress/Results/Core Measures Suspected Sepsis SIRS Temperature: Pulse: 62 Respiratory Rate: 18 Laboratory Tests 05/09/21 11:05: White Blood Count 16.1H Blood Pressure 159 /73 Mean: 101 Laboratory Tests 05/09/21 11:05: Creatinine 0.95, Platelet Count 455H, Total Bilirubin 0.6 Results/Orders Lab Results Laboratory Tests Test 05/09/21 11:05 05/09/21 11:06 05/09/21 11:51 Range/Units White Blood Count 16.1 H 4.3-11.0 10^3/uL Red Blood Count 3.98 L 4.30-5.52 10^6/uL Hemoglobin 11.3 L 13.3-17.7 g/dL Hematocrit 35 L 40-54 % Mean Corpuscular Volume 87 80-99 fL Mean Corpuscular Hemoglobin 28 25-34 pg Mean Corpuscular Hemoglobin Concent 33 32-36 g/dL Red Cell Distribution Width 13.2 10.0-14.5 % Platelet Count 455 H 130-400 10^3/uL Mean Platelet Volume 10.5 9.0-12.2 fL Immature Granulocyte % (Auto) 1 % Neutrophils (%) (Auto) 84 H 42-75 % Lymphocytes (%) (Auto) 9 L 12-44 % Monocytes (%) (Auto) 6 0-12 % Eosinophils (%) (Auto) 0 0-10 % Basophils (%) (Auto) 0 0-10 % Neutrophils # (Auto) 13.6 H 1.8-7.8 10^3/uL Lymphocytes # (Auto) 1.5 1.0-4.0 10^3/uL Monocytes # (Auto) 0.9 0.0-1.0 10^3/uL Eosinophils # (Auto) 0.1 0.0-0.3 10^3/uL Basophils # (Auto) 0.0 0.0-0.1 10^3/uL Immature Granulocyte # (Auto) 0.1 0.0-0.1 10^3/uL Neutrophils % (Manual) 84 % Lymphocytes % (Manual) 14 % Monocytes % (Manual) 2 % Hypochromasia SLIGHT Sodium Level 134 L 135-145 MMOL/L Potassium Level 4.8 3.6-5.0 MMOL/L Chloride Level 103 98-107 MMOL/L Carbon Dioxide Level 22 21-32 MMOL/L Anion Gap 9 5-14 MMOL/L Blood Urea Nitrogen 19 H 7-18 MG/DL Creatinine 0.95 0.60-1.30 MG/DL Estimat Glomerular Filtration Rate 79 BUN/Creatinine Ratio 20 Glucose Level 254 H 70-105 MG/DL Calcium Level 8.7 8.5-10.1 MG/DL Corrected Calcium 9.2 8.5-10.1 MG/DL Total Bilirubin 0.6 0.1-1.0 MG/DL Aspartate Amino Transf (AST/SGOT) 101 H 5-34 U/L Alanine Aminotransferase (ALT/SGPT) 113 H 0-55 U/L Alkaline Phosphatase 273 H 40-136 U/L Total Protein 6.5 6.4-8.2 GM/DL Albumin 3.4 3.2-4.5 GM/DL Lipase 25 8-78 U/L Beta-Hydroxybutyrate (Chem panel) 0.09 0.00-0.27 MMOL/L Glucometer 224 H 70-110 MG/DL My Orders Orders - PAULINA WHITE APRN Cbc With Automated Diff (05/09/21 10:52) Comprehensive Metabolic Panel (05/09/21 10:52) Ua Culture If Indicated (05/09/21 10:52) Lipase (05/09/21 10:52) Ed Iv/Invasive Line Start (05/09/21 10:52) Lactated Ringers (Lr 1000 Ml Iv Solution (05/09/21 11:00) Beta Hydroxybutyrate (05/09/21 11:00) Manual Differential (05/09/21 11:05) Vital Signs/I&O 05/09/21 09:36 Temp 35.9 Pulse 62 Resp 18 B/P (MAP) 159/73 (101) Pulse Ox 99 Capillary Refill : Less Than 3 Seconds Blood Pressure Mean: 101 Departure Communication (Admissions) 1232-leukocytosis and elevated liver enzymes likely secondary to cholecystectomy yesterday. Incisions are clean dry and intact. Abdomen is soft and minimally tender. Hemodynamically stable. Afebrile. Plan to discharge home with return precautions Impression Primary Impression: Diabetes mellitus, type 2 Disposition: 01 HOME, SELF-CARE Condition: Stable Departure-Patient Inst. Decision time for Depature: 12:33 Referrals: [facility] (PCP/Family) Primary Care Physician Patient Instructions: Type 2 Diabetes (DC) PAULINA WHITE APRN May 09, 2021 10:56
[2021-05-09] MEDS ORDERED: LACTATED RINGERS 1,000 ML IV SCH (11:00)
[2021-05-09 11:23] LABS: BASOPHILS % (AUTO) 0 % (0-10); EOSINOPHILS # (AUTO) 0.1 10^3/uL (0.0-0.3); EOSINOPHILS % (AUTO) 0 % (0-10); HEMATOCRIT 35 % (40-54); HEMOGLOBIN 11.3 g/dL (13.3-17.7); LYMPHOCYTES # (AUTO) 1.5 10^3/uL (1.0-4.0); LYMPHOCYTES % (AUTO) 9 % (12-44); MEAN CORPUSCULAR HEMOGLOBIN 28 pg (25-34); MEAN CORPUSCULAR HGB CONC 33 g/dL (32-36); MEAN CORPUSCULAR VOLUME 87 fL (80-99); MEAN PLATELET VOLUME 10.5 fL (9.0-12.2); MONOCYTES # (AUTO) 0.9 10^3/uL (0.0-1.0); MONOCYTES % (AUTO) 6 % (0-12); NEUTROPHILS # (AUTO) 13.6 10^3/uL (1.8-7.8); NEUTROPHILS % (AUTO) 84 % (42-75); PLATELET COUNT 455 10^3/uL (130-400); WHITE BLOOD COUNT 16.1 10^3/uL (4.3-11.0)
[2021-05-09 11:29] LABS: ALBUMIN 3.4 GM/DL (3.2-4.5)
[2021-05-09 11:30] LABS: POTASSIUM 4.8 MMOL/L (3.6-5.0)
[2021-05-09 11:31] LABS: CALCIUM 8.7 MG/DL (8.5-10.1)
[2021-05-09 11:32] LABS: TOTAL PROTEIN 6.5 GM/DL (6.4-8.2)
[2021-05-09 11:34] LABS: BILIRUBIN,TOTAL 0.6 MG/DL (0.1-1.0)
[2021-05-09 11:36] LABS: CREATININE SERUM 0.95 MG/DL (0.60-1.30)
[2021-05-09 11:41] LABS: HYPOCHROMASIA SLIGHT; LYMPHOCYTES % (MANUAL) 14 %; MONOCYTES % (MANUAL) 2 %; NEUTROPHILS % (MANUAL) 84 %
[2021-05-09 12:24] LABS: BILIRUBIN,URINE NEGATIVE (NEGATIVE); CLARITY,URINE CLEAR; COLOR,URINE YELLOW; GLUCOSE, URINE (UA) 3+ (NEGATIVE); KETONES,URINE NEGATIVE (NEGATIVE); LEUKOCYTE ESTERASE ,URINE NEGATIVE (NEGATIVE); NITRITE,URINE NEGATIVE (NEGATIVE); PH,URINE 5.5 (5-9); PROTEIN,URINE NEGATIVE (NEGATIVE)
[2021-05-09 12:32] LABS: BACTERIA,URINE NEGATIVE /HPF; RBC,URINE RARE /HPF; WBC,URINE RARE /HPF
[2021-05-09 12:40] VITALS: BP 148/62
== END 2021-05-09 12:48 | disposition home or self-care (01) ==
LOC: EDUNIT# 09:32 → ER 09:33
DX: E11.9 Type 2 diabetes mellitus without complications (principal); I10 Essential (primary) hypertension; E78.00 Pure hypercholesterolemia, unspecified; K21.9 Gastro-esophageal reflux disease without esophagitis; Z79.84 Long term (current) use of oral hypoglycemic drugs; Z79.899 Other long term (current) drug therapy; Z79.82 Long term (current) use of aspirin
CPT/HCPCS: 36415; 80053; 81000; 82010; 82947; 83690; 85007; 85027